=== PATIENT | male | born 1960 | race Two or more races ===

== ENCOUNTER 2016-09-21 12:21 | Inpatient (IN) | payer OTHER ==
[2016-09-21 13:35] VITALS: BMI 39.6
--- NOTE | 2016-09-21 14:31 | HP ---
COWS - Scale Resting Pulse: 1= AR 81-100 Sweatin= Chills/Flushing Restless Observation: 3= Extraneous Movement Pupil Size: 2= Moderately Dilated Bone or Joint Aches: 4=Acute Joint/Muscle Pain Runny Nose/ Eye Tearin= None GI Upset > 30mins: 2= Nausea/Diarrhea Tremor Observation: 2= Slight Tremor Visible Yawning Observation: 2= >3x During Session Anxiety or Irritability: 2=Irritable/Anxious Goose Flesh Skin: 0=Smooth Skin COWS Score: 19 CIWA Score - CIWA Score Nausea/Vomitin-Int. Nausea w/Dry Heave Muscle Tremors: 4-Moderate,w/Arms Extend Anxiety: 4-Mod. Anxious/Guarded Agitation: 3 Paroxysmal Sweats: 1-Minimal Palms Moist Orientation: 0-Oriented Tacttile Disturbances: 3-Moderate Itch/Numb/Burn Auditory Disturbances: 0-None Visual Disturbances: 0-None Headache: 1-Very Mild CIWA-Ar Total Score: 20 Admission ROS S - HPI Chief Complaint: DETOX FOR PERCOCETS AND ALCOHOL DEPENDENCE Allergies/Adverse Reactions: Allergies Allergy/AdvReac Type Severity Reaction Status Date / Time No Known Allergies Allergy Verified 09/21/16 14:55 History of Present Illness: 56 Y/O H/M WITH A HX OF PERCOCETS AND ALCOHOL DEPENDENCE SEEKING DETOX [place] Exam Limitations: No Limitations - Ebola screening Have you traveled outside of the country in the last 21 days: No Have you had contact with anyone from an Ebola affected area: No Have you been sick,other than usual withdrawal symptoms: No Do you have a fever: No - Review of Systems Constitutional: Chills, Loss of Appetite, Night Sweats, Changes in sleep EENT: reports: Blurred Vision (WEARS GLASSES), Tearing, Dental Problems (WEARS UPPER DENTURS) Respiratory: reports: Shortness of Breath (HX ASTHMA), Wheezing Cardiac: reports: Lightheadedness GI: reports: Constipated, Nausea, Poor Appetite, Poor Fluid Intake : reports: No Symptoms Reported Musculoskeletal: reports: Back Pain (HX SPINAL STENOSIS), Joint Pain (BOTH KNEE REPPLACEMENT), Muscle Pain Integumentary: reports: Dryness Neuro: reports: Headache, Tremors, Unsteady Gait, Dizziness Endocrine: reports: No Symptoms Reported Hematology: reports: No Symptoms Reported Psychiatric: reports: Orientated x3, Anxious, Depressed Other Systems: Reviewed and Negative Patient History - Patient Medical History Hx Anemia: No Hx Asthma: Yes (albuterol) Hx Chronic Obstructive Pulmonary Disease (COPD): No Hx Cancer: No Hx Cardiac Disorders: No Hx Congestive Heart Failure: No Hx Hypertension: Yes (ON LISINOPRIL AND CARVEDILOL) Hx Hypercholesterolemia: Yes (ON MED) Hx Pacemaker: No HX Cerebrovascular Accident: No Hx Seizures: No Hx Dementia: No Hx Diabetes: Yes (Type I-LANTUS 30 UNITS HS AND NOVOLOG 20 UNITS TIDAC) Hx Gastrointestinal Disorders: No Hx Liver Disease: No Hx Genitourinary Disorders: No Hx Sexually Transmitted Disorders: No Hx Renal Disease (ESRD): No Hx Thyroid Disease: No Hx Human Immunodeficiency Virus (HIV): No (NEGATIVE HX) Hx Hepatitis C: No Hx Depression: Yes (AND ANXIETY) Hx Suicide Attempt: No (DENIES) Hx Bipolar Disorder: No Hx Schizophrenia: No - Patient Surgical History Past Surgical History: Yes Hx Neurologic Surgery: No Hx Cataract Extraction: No Hx Cardiac Surgery: No Hx Lung Surgery: No Hx Breast Surgery: No Hx Breast Biopsy: No Hx Abdominal Surgery: No Hx Appendectomy: No Hx Cholecystectomy: No Hx Genitourinary Surgery: No Hx Section: No Hx Orthopedic Surgery: Yes (s/p bilat knee replacement in 2010) Anesthesia Reaction: No - PPD History Previous Implant?: Yes Documented Results: Negative w/o proof Date: 07/07/14 Results: 0 mm PPD to be Administered?: Yes - Reproductive History Patient is a Female of Child Bearing Age (11 -55 yrs old): No (MALE) - Smoking Cessation Smoking history: Never smoked Have you smoked in the past 12 months: No Hx Chewing Tobacco Use: No Initiated information on smoking cessation: No - Substance & Tx. History Hx Alcohol Use: Yes (BARCADI/BEER) Hx Substance Use: Yes (PERCOCETS) Substance Use Type: Alcohol, Opiates Hx Substance Use Treatment: Yes ([facility]) - Substances Abused Alcohol Route: Oral Frequency: Daily Amount used: FIFTH Age of first use: 16 Date of Last Use: 09/19/16 PERCOCETS Route: Oral Frequency: Daily Amount used: 60 -70 MG Age of first use: 55 Date of Last Use: 09/21/16 Family Disease History - Family Disease History Family Disease History: Diabetes: Father (STOMACH CANCER...), Brother ( STOMACH CANCER..), Other: Father Admission Physical Exam [facility] - Vital Signs Vital Signs: Vital Signs - 24 hr 09/21/16 13:14 Temperature 97.2 F L Pulse Rate 97 H Respiratory 20 Rate Blood Pressure 143/71 - Physical General Appearance: Yes: Moderate Distress, Irritable, Anxious HEENTM: Yes: EOMI, Normocephalic, SANTI, Pharynx Normal Respiratory: Yes: Chest Non-Tender, Lungs Clear, Normal Breath Sounds, No Respiratory Distress Neck: Yes: Supple, Trachea in good position Breast: Yes: Breast Exam Deferred Cardiology: Yes: Regular Rhythm, Regular Rate, S1, S2 Abdominal: Yes: Normal Bowel Sounds, Non Tender, Soft, Protuberent Genitourinary: Yes: Other (N/C) Back: Yes: Within Normal Limits Musculoskeletal: Yes: full range of Motion, Gait Steady Extremities: Yes: Normal Range of Motion, Non-Tender 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, Fully Oriented, Alert Integumentary: Yes: Dry, Warm, Track Abrams - Diagnostic (1) BPH (benign prostatic hyperplasia) Current Visit: Yes Status: Chronic Qualifiers: Prostatic enlargement morphology: unspecified morphology (2) Essential hypertension Current Visit: Yes Status: Chronic (3) Hypercholesterolemia Current Visit: Yes Status: Chronic (4) Obesity Current Visit: Yes Status: Chronic Qualifiers: Obesity type: unspecified obesity type (5) Peripheral neuropathy Current Visit: Yes Status: Chronic (6) Type 2 diabetes mellitus Current Visit: Yes Status: Chronic (7) Opioid dependence with withdrawal Current Visit: Yes Status: Acute (8) Asthma Current Visit: Yes Status: Chronic Qualifiers: Asthma severity: mild intermittent Asthma complication type: uncomplicated Qualified Code(s): J45.20 - Mild intermittent asthma, uncomplicated (9) Alcohol dependence with uncomplicated withdrawal Current Visit: Yes Status: Acute Cleared for Admission [facility] - Detox or Rehab [facility] Level of Care: Medically Managed Detox Regimen/Protocol: Methadone/Librium [facility] Breath Alcohol Content Breath Alcohol Content: 0 Urine Drug Screen - Results Drug Screen Negative: No Urine Drug Screen Results: TCA-Tricyclic Antidepress, OXY-Oxycodone
[2016-09-21] MEDS ORDERED: hydrOXYzine PAMOATE 25 MG CAPSULE (FP) PO PRN (15:45)
[2016-09-21] MEDS ORDERED: MAGNESIUM CITRATE 300 ML BOTTLE PO PRN (15:45)
[2016-09-21] MEDS ORDERED: MENTHOL/PHENOL 1 EACH UD MM PRN (15:45)
[2016-09-21] MEDS ORDERED: P-EPHED 60MG/TRIPROLIDI 2.5MG TABLET PO PRN (15:45)
[2016-09-21] MEDS ORDERED: MAGNESIUM HYDROX 2400MG/30ML ORAL SUSPENSION 30 ML CUP PO PRN (15:45)
[2016-09-21] MEDS ORDERED: chlordiazePOXIDE HCL 25 MG CAPSULE PO PRN (15:45)
[2016-09-21] MEDS ORDERED: MAG HYDROX/AL HYDROX/SIMETH 30 ML UNIT-DOSE CUP PO PRN (15:45)
[2016-09-21] MEDS ORDERED: guaiFENesin/D-METHORPHAN HB 10 ML UNIT-DOSE CUPS PO PRN (15:45)
[2016-09-21] MEDS ORDERED: LOPERAMIDE HCL 2 MG CAPSULE PO PRN (15:45)
[2016-09-21] MEDS: chlordiazePOXIDE HCL 25 MG CAPSULE PO SCH ×2 (17:27→22:18)
[2016-09-21] MEDS ORDERED: METHADONE HCL 10 MG TABLET (FOR DETOX USE ONLY) PO ONE ×2 (17:30→23:00)
[2016-09-21] MEDS: INSULIN SLIDING SCALE (NOVOLOG) 1 VIAL SQ SCH ×2 (17:34→21:33)
[2016-09-21] MEDS ORDERED: diphenhydrAMINE HCL 50 MG CAPSULE PO PRN (22:00)
[2016-09-21] MEDS ORDERED: PATIENT'S OWN MEDICATION (NON-FORMULARY) (Insulin Glargine,Hum.Rec.Anlog 30 UNITS) SQ SCH (22:00)
[2016-09-21] MEDS ORDERED: PATIENT'S OWN MEDICATION (NON-FORMULARY) (Gabapentin [Neurontin] 600 MG) PO SCH (22:00)
[2016-09-21] MEDS ORDERED: FLUNISOLIDE IH SCH (22:00)
[2016-09-21] MEDS: THIAMINE HCL 100 MG TABLET (FP) PO SCH (22:18)
[2016-09-21] MEDS: GABAPENTIN 300 MG CAPSULE (FP) PO SCH (22:18)
[2016-09-21] MEDS: CARVEDILOL 25 MG TABLET (FP) PO SCH (22:19)
[2016-09-21] MEDS: ATORVASTATIN CA 20 MG TABLET (FP) PO SCH (22:19)
[2016-09-21] MEDS: INSULIN DETEMIR 100 UNITS/ML MDV SQ SCH (22:20)
[2016-09-21] MEDS ORDERED: ALBUTEROL SO4 6.7 GM HFA INHALER IH ONE (22:49)
[2016-09-21] MEDS: ALBUTEROL SO4 6.7 GM HFA INHALER IH PRN (22:50)
[2016-09-22] MEDS: GABAPENTIN 300 MG CAPSULE (FP) PO SCH (05:50)
[2016-09-22] MEDS: chlordiazePOXIDE HCL 25 MG CAPSULE PO SCH ×4 (05:50→22:27)
[2016-09-22] MEDS: INSULIN SLIDING SCALE (NOVOLOG) 1 VIAL SQ SCH ×4 (06:18→22:29)
[2016-09-22] MEDS: TAMSULOSIN HCL 0.4 MG CAP.ER.24H (FP) PO SCH (09:35)
[2016-09-22 09:59] LABS: MCH 27.8 pg (25.7-33.7); MCHC 33.3 g/dl (32.0-35.9); MEAN CELL VOLUME 83.4 fl (80-96); PLATELET COUNT 408 K/MM3 (134-434); WHITE BLOOD COUNT 8.5 K/mm3 (4.0-10.0)
[2016-09-22] MEDS ORDERED: NIFEdipine E.R 60 MG TABLET (UD) PO SCH (10:00)
[2016-09-22] MEDS ORDERED: PATIENT'S OWN MEDICATION (NON-FORMULARY) (Nifedipine [Nifedical Xl] 60 MG) PO SCH (10:00)
[2016-09-22] MEDS ORDERED: METHADONE HCL 10 MG TABLET (FOR DETOX USE ONLY) PO SCH (10:00)
[2016-09-22] MEDS: LISINOPRIL 10 MG TABLET (FP) PO SCH (10:09)
[2016-09-22] MEDS: PRENATAL VITAMINS W/ FOLIC ACID TABLET (FP) PO SCH (10:09)
[2016-09-22] MEDS: ASPIRIN 81 MG CHEWABLE TABLETS PO SCH (10:10)
[2016-09-22] MEDS: CARVEDILOL 25 MG TABLET (FP) PO SCH ×2 (10:10→22:27)
[2016-09-22 10:16] LABS: ALK PHOS 78 U/L (45-117); ANION GAP 8 (8-16); BILIRUBIN,TOTAL 0.3 mg/dL (0.2-1.0); CALCIUM 9.1 mg/dL (8.5-10.1); CO2 28 mmol/L (21-32); GLUCOSE,RANDOM 189 mg/dL (74-106); SGOT/AST 15 U/L (15-37); SGPT/ALT 24 U/L (12-78); TOT PROT 7.2 g/dl (6.4-8.2)
--- NOTE | 2016-09-22 10:32 | PN ---
S CIWA - CIWA Score Nausea/Vomitin-Mild Nausea/No Vomiting Muscle Tremors: 4-Moderate,w/Arms Extend Anxiety: 4-Mod. Anxious/Guarded Agitation: 3 Paroxysmal Sweats: 3 Orientation: 0-Oriented Tacttile Disturbances: 1-Very Mild Itch/Numbness Auditory Disturbances: 0-None Visual Disturbances: 0-None Headache: 0-None Present CIWA-Ar Total Score: 16 BHS COWS - Scale Resting Pulse: 1= [place] 81-100 Sweatin=Flushed/Facial Moisture Restless Observation: 1= Difficult to Sit Still Pupil Size: 0= Normal to Room Light Bone or Joint Aches: 2= Severe Diffuse Aches Runny Nose/ Eye Tearin= Runny Nose/Eyes GI Upset > 30mins: 2= Nausea/Diarrhea Tremor Observation of Outstretched Hands: 2= Slight Tremor Visible Yawning Observation: 1= 1-2x During Session Anxiety or Irritability: 2=Irritable/Anxious Goose Flesh Skin: 0=Smooth Skin COWS Score: 15 S Progress Note (SOAP) Subjective: sweating,interrupted sleep,restless,sweating,muscle aches/spasm Objective: 09/22/16 10:29 Last Vital Signs Temp Pulse Resp BP Pulse Ox 96.5 F L 85 18 150/81 09/22/16 10:00 09/22/16 10:00 09/22/16 10:00 09/22/16 10:00 Laboratory Tests 09/21/16 09/22/16 09/22/16 15:11 05:49 06:00 WBC 8.5 RBC 4.19 Hgb 11.6 L D Hct 35.0 L MCV 83.4 MCHC 33.3 RDW 14.0 Plt Count 408 D MPV 8.0 Sodium Potassium Chloride Carbon Dioxide Anion Gap BUN Creatinine Creat Clearance w eGFR POC Glucometer 189 136 Random Glucose Calcium Total Bilirubin AST ALT Alkaline Phosphatase Total Protein Albumin 09/22/16 06:00 WBC RBC Hgb Hct MCV MCHC RDW Plt Count MPV Sodium 138 Potassium 5.0 Chloride 102 Carbon Dioxide 28 Anion Gap 8 BUN 19 H D Creatinine 1.0 Creat Clearance w eGFR > 60 POC Glucometer Random Glucose 189 H D Calcium 9.1 Total Bilirubin 0.3 AST 15 D ALT 24 D Alkaline Phosphatase 78 Total Protein 7.2 Albumin 4.0 labs noted Assessment: 09/22/16 10:32 withdrawal sx. Plan: continue detox
[2016-09-22] MEDS: NIFEDIPINE PO SCH (10:39)
[2016-09-22] MEDS ORDERED: INSULIN (NOVOLOG) ASPART 100 UNITS/ML 10ML VIAL ONE ×2 (11:43→16:54)
[2016-09-22] MEDS: GABAPENTIN PO SCH ×2 (13:57→22:28)
--- NOTE | 2016-09-22 14:11 | CONSULT ---
[facility] Psychiatric Consult - Data Date of interview: 09/22/16 Admission source: [facility] Identifying data: Readmission to [facility] for this 56 y/o male seeking detox treatment on for alcohol and opiate dependence.Patient is ,a father of two,domiciled,disabled and supported on [facility] benefits. Substance Abuse History: - Smoking Cessation. Smoking history: Never smoked. Have you smoked in the past 12 months: No. Hx Chewing Tobacco Use: No. - Substance & Tx. History. Hx Alcohol Use: Yes (BARCADI/BEER). Hx Substance Use : Yes (PERCOCETS). Substance Use Type: Alcohol, Opiates. Hx Substance Use Treatment: Yes ([facility]). - Substances Abused. Alcohol. Route: Oral. Frequency: Daily. Amount used: FIFTH. Age of first use: 16. Date of Last Use : 09/19/16. PERCOCETS. Route: Oral. Frequency: Daily. Amount used: 60 - 70 MG. Age of first use: 55. Date of Last Use: 09/21/16. Confirmed by patient in my interview. Medical History: Remarkable for a history of bronchial asthma,hypertension,low back pain,bilateral knee replacement,benign prostatic hyperplasia,diabetes mellitus-type I,spinal stenosis and obesity. Psychiatric History: Patient denies. Physical/Sexual Abuse/Trauma History: Patient denies. Additional Comment: Urine Drug Screen Results: TCA-Tricyclic Antidepressant, OXY -Oxycodone.Noted. Mental Status Exam - Mental Status Exam Alert and Oriented to: Time, Place, Person Cognitive Function: Good Patient Appearance: Well Groomed (obese) Mood: Hopeful, Euthymic Affect: Appropriate, Normal Range Patient Behavior: Fatigued, Appropriate, Cooperative Speech Pattern: Clear, Appropriate Voice Loudness: Normal Thought Process: Goal Oriented Thought Disorder: Not Present Hallucinations: Denies Suicidal Ideation: Denies Homicidal Ideation: Denies Insight/Judgement: Fair Sleep: Fair Appetite: Good Muscle strength/Tone: Normal Gait/Station: Other (mild limp) Psychiatric Findings - Problem List ([place] 1, 2,3) (1) Alcohol dependence with uncomplicated withdrawal Current Visit: Yes Status: Acute (2) Opioid dependence with withdrawal Current Visit: Yes Status: Acute (3) Essential hypertension Current Visit: Yes Status: Chronic (4) BPH (benign prostatic hyperplasia) Current Visit: Yes Status: Chronic Qualifiers: Prostatic enlargement morphology: unspecified morphology (5) Obesity Current Visit: Yes Status: Chronic Qualifiers: Obesity type: unspecified obesity type (6) Hypercholesterolemia Current Visit: Yes Status: Chronic (7) Type 2 diabetes mellitus Current Visit: Yes Status: Chronic (8) Peripheral neuropathy Current Visit: Yes Status: Chronic - Initial Treatment Plan Initial Treatment Plan: Psychoeducation.Detoxification.Observation.
[2016-09-22 17:24] LABS: URINE APPEARANCE CLEAR; URINE BILIRUBIN NEGATIVE (NEGATIVE); URINE BLOOD NEGATIVE (NEGATIVE); URINE COLOR YELLOW; URINE GLUCOSE (UA) 3+ (NEGATIVE); URINE KETONE NEGATIVE (NEGATIVE); URINE LEUK ESTERASE NEGATIVE (NEGATIVE); URINE NITRITE NEGATIVE (NEGATIVE); URINE UROBILINOGEN NEGATIVE E.U./dl (0.2-1.0)
[2016-09-22 17:59] LABS: URINE PROTEIN 1+ (NEGATIVE)
[2016-09-22 18:31] LABS: URINE MUCUS RARE; URINE RBC <1 /hpf (0-3); URINE WBC <1 /hpf (3-5)
[2016-09-22] MEDS: ATORVASTATIN CA 20 MG TABLET (FP) PO SCH (22:27)
[2016-09-22] MEDS: THIAMINE HCL 100 MG TABLET (FP) PO SCH (22:27)
[2016-09-22] MEDS: INSULIN DETEMIR 100 UNITS/ML MDV SQ SCH (22:28)
[2016-09-22] MEDS: FLUNISOLIDE IH SCH (22:28)
--- NOTE | 2016-09-22 23:36 | EKG ---
Test Reason : Blood Pressure : / mmHG Vent. Rate : 093 BPM Atrial Rate : 093 BPM P-R Int : 140 ms QRS Dur : 076 ms QT Int : 340 ms P-R-T Axes : 060 048 052 degrees QTc Int : 422 ms NORMAL SINUS RHYTHM NONSPECIFIC T WAVE ABNORMALITY ABNORMAL ECG NO PREVIOUS ECGS AVAILABLE Confirmed by TARA MCPHERSON MD ([id number]) on 09/22/2016 11:35:55 PM Referred By: Confirmed By:TARA MCPHERSON MD
[2016-09-23] MEDS: chlordiazePOXIDE HCL 25 MG CAPSULE PO SCH ×2 (05:39→10:17)
[2016-09-23] MEDS: GABAPENTIN PO SCH ×3 (05:39→22:21)
[2016-09-23] MEDS: INSULIN SLIDING SCALE (NOVOLOG) 1 VIAL SQ SCH ×4 (06:09→21:30)
[2016-09-23] MEDS: ALBUTEROL SO4 6.7 GM HFA INHALER IH PRN ×2 (10:16→22:25)
[2016-09-23] MEDS: NIFEDIPINE PO SCH (10:16)
[2016-09-23] MEDS: CARVEDILOL 25 MG TABLET (FP) PO SCH ×2 (10:16→22:21)
[2016-09-23] MEDS: PRENATAL VITAMINS W/ FOLIC ACID TABLET (FP) PO SCH (10:16)
[2016-09-23] MEDS: TAMSULOSIN HCL 0.4 MG CAP.ER.24H (FP) PO SCH (10:16)
[2016-09-23] MEDS: LISINOPRIL 10 MG TABLET (FP) PO SCH (10:16)
[2016-09-23] MEDS: ASPIRIN 81 MG CHEWABLE TABLETS PO SCH (10:16)
[2016-09-23] MEDS: METHADONE HCL 5 MG TABLET (FOR DETOX USE ONLY) PO SCH (10:19)
[2016-09-23] MEDS ORDERED: INSULIN (NOVOLOG) ASPART 100 UNITS/ML 10ML VIAL ONE ×3 (11:10→21:19)
[2016-09-23] MEDS: ACETAMINOPHEN 325 MG TABLET (FP) PO PRN (11:11)
--- NOTE | 2016-09-23 17:14 | PN ---
[facility] CIWA - CIWA Score Nausea/Vomitin-No Nausea/No Vomiting Muscle Tremors: 4-Moderate,w/Arms Extend Anxiety: 4-Mod. Anxious/Guarded Agitation: 3 Paroxysmal Sweats: 3 Orientation: 0-Oriented Tacttile Disturbances: 0-None Auditory Disturbances: 0-None Visual Disturbances: 0-None Headache: 0-None Present CIWA-Ar Total Score: 14 S Progress Note (SOAP) Subjective: anxiety,tremors,sweating,interrupted sleep,restless Objective: 09/23/16 17:13 Vital Signs - 8 hr 09/23/16 09/23/16 09:45 15:03 Temperature 96.3 F L 98.1 F Pulse Rate 87 79 Respiratory 18 20 Rate Blood Pressure 156/89 140/89 Laboratory Last Values WBC 8.5 K/mm3 (4.0-10.0) 09/22/16 06:00 RBC 4.19 M/mm3 (4.00-5.60) 09/22/16 06:00 Hgb 11.6 GM/dL (11.7-16.9) L D 09/22/16 06:00 Hct 35.0 % (35.4-49) L 09/22/16 06:00 MCV 83.4 fl (80-96) 09/22/16 06:00 MCHC 33.3 g/dl (32.0-35.9) 09/22/16 06:00 RDW 14.0 % (11.9-15.9) 09/22/16 06:00 Plt Count 408 K/MM3 (134-434) D 09/22/16 06:00 MPV 8.0 fl (7.5-11.1) 09/22/16 06:00 Sodium 138 mmol/L (136-145) 09/22/16 06:00 Potassium 5.0 mmol/L (3.5-5.1) 09/22/16 06:00 Chloride 102 mmol/L (98-107) 09/22/16 06:00 Carbon Dioxide 28 mmol/L (21-32) 09/22/16 06:00 Anion Gap 8 (8-16) 09/22/16 06:00 BUN 19 mg/dL (7-18) H D 09/22/16 06:00 Creatinine 1.0 mg/dL (0.7-1.3) 09/22/16 06:00 Creat Clearance w eGFR > 60 (>60) 09/22/16 06:00 POC Glucometer 240 UNITS (()) 09/23/16 16:13 Random Glucose 189 mg/dL (74-106) H D 09/22/16 06:00 Calcium 9.1 mg/dL (8.5-10.1) 09/22/16 06:00 Total Bilirubin 0.3 mg/dL (0.2-1.0) 09/22/16 06:00 AST 15 U/L (15-37) D 09/22/16 06:00 ALT 24 U/L (12-78) D 09/22/16 06:00 Alkaline Phosphatase 78 U/L (45-117) 09/22/16 06:00 Total Protein 7.2 g/dl (6.4-8.2) 09/22/16 06:00 Albumin 4.0 g/dl (3.4-5.0) 09/22/16 06:00 Urine Color Yellow 09/22/16 11:55 Urine Appearance Clear 09/22/16 11:55 Urine pH 6.0 (5.0-8.0) 09/22/16 11:55 Ur Specific [place] 1.016 (1.001-1.035) 09/22/16 11:55 Urine Protein 1+ (NEGATIVE) H 09/22/16 11:55 Urine Glucose (UA) 3+ (NEGATIVE) H 09/22/16 11:55 Urine Ketones Negative (NEGATIVE) 09/22/16 11:55 Urine Blood Negative (NEGATIVE) 09/22/16 11:55 Urine Nitrite Negative (NEGATIVE) 09/22/16 11:55 Urine Bilirubin Negative (NEGATIVE) 09/22/16 11:55 Urine Urobilinogen Negative E.U./dl (0.2-1.0) 09/22/16 11:55 Ur Leukocyte Esterase Negative (NEGATIVE) 09/22/16 11:55 Urine RBC <1 /hpf (0-3) 09/22/16 11:55 Urine WBC <1 /hpf (3-5) 09/22/16 11:55 Ur Epithelial Cells Rare /hpf (FEW) 09/22/16 11:55 Urine Mucus Rare 09/22/16 11:55 RPR Titer Nonreactive (NONREACTIVE) 09/22/16 06:00 labs noted Assessment: 09/23/16 17:14 withdrawal sx. Plan: continue detox
[2016-09-23] MEDS: chlordiazePOXIDE 5 MG CAPSULE PO SCH ×2 (17:21→22:21)
[2016-09-23] MEDS: THIAMINE HCL 100 MG TABLET (FP) PO SCH (22:21)
[2016-09-23] MEDS: ATORVASTATIN CA 20 MG TABLET (FP) PO SCH (22:22)
[2016-09-23] MEDS: ZOLPIDEM TARTRATE 5 MG TABLET PO PRN (22:22)
[2016-09-23] MEDS: FLUNISOLIDE IH SCH (22:24)
[2016-09-23] MEDS: INSULIN DETEMIR 100 UNITS/ML MDV SQ SCH (22:24)
[2016-09-24] MEDS: GABAPENTIN PO SCH ×3 (05:42→22:15)
[2016-09-24] MEDS: chlordiazePOXIDE 5 MG CAPSULE PO SCH ×2 (05:42→10:15)
[2016-09-24] MEDS: INSULIN SLIDING SCALE (NOVOLOG) 1 VIAL SQ SCH ×4 (06:06→21:46)
[2016-09-24] MEDS ORDERED: INSULIN (NOVOLOG) ASPART 100 UNITS/ML 10ML VIAL ONE ×3 (06:06→16:32)
[2016-09-24] MEDS: TAMSULOSIN HCL 0.4 MG CAP.ER.24H (FP) PO SCH (09:45)
[2016-09-24] MEDS: METHADONE HCL 5 MG TABLET (FOR DETOX USE ONLY) PO SCH (10:14)
[2016-09-24] MEDS: PRENATAL VITAMINS W/ FOLIC ACID TABLET (FP) PO SCH (10:14)
[2016-09-24] MEDS: LISINOPRIL 10 MG TABLET (FP) PO SCH (10:14)
[2016-09-24] MEDS: CARVEDILOL 25 MG TABLET (FP) PO SCH ×2 (10:14→22:15)
[2016-09-24] MEDS: NIFEDIPINE PO SCH (10:14)
[2016-09-24] MEDS: ASPIRIN 81 MG CHEWABLE TABLETS PO SCH (10:14)
[2016-09-24] MEDS: ALBUTEROL SO4 6.7 GM HFA INHALER IH PRN ×2 (10:15→22:16)
[2016-09-24] MEDS: ACETAMINOPHEN 325 MG TABLET (FP) PO PRN (10:56)
--- NOTE | 2016-09-24 11:14 | PN ---
BHS Progress Note (SOAP) Subjective: SWEATING,INTERRUPTED SLEEP,RESTLESS Objective: 09/24/16 11:12 Vital Signs - 8 hr 09/24/16 09/24/16 09/24/16 03:27 06:08 09:21 Temperature 96.1 F L 96.8 F L Pulse Rate 79 87 Respiratory 18 18 18 Rate Blood Pressure 137/83 137/79 Laboratory Tests 09/21/16 09/21/16 09/22/16 15:11 21:19 05:49 WBC RBC Hgb Hct MCV MCHC RDW Plt Count MPV Sodium Potassium Chloride Carbon Dioxide Anion Gap BUN Creatinine Creat Clearance w eGFR POC Glucometer 189 162 136 Random Glucose Calcium Total Bilirubin AST ALT Alkaline Phosphatase Total Protein Albumin Urine Color Urine Appearance Urine pH Ur Specific Home Urine Protein Urine Glucose (UA) Urine Ketones Urine Blood Urine Nitrite Urine Bilirubin Urine Urobilinogen Ur Leukocyte Esterase Urine RBC Urine WBC Ur Epithelial Cells Urine Mucus RPR Titer 09/22/16 09/22/16 09/22/16 06:00 06:00 06:00 WBC 8.5 RBC 4.19 Hgb 11.6 L D Hct 35.0 L MCV 83.4 MCHC 33.3 RDW 14.0 Plt Count 408 D MPV 8.0 Sodium 138 Potassium 5.0 Chloride 102 Carbon Dioxide 28 Anion Gap 8 BUN 19 H D Creatinine 1.0 Creat Clearance w eGFR > 60 POC Glucometer Random Glucose 189 H D Calcium 9.1 Total Bilirubin 0.3 AST 15 D ALT 24 D Alkaline Phosphatase 78 Total Protein 7.2 Albumin 4.0 Urine Color Urine Appearance Urine pH Ur Specific Home Urine Protein Urine Glucose (UA) Urine Ketones Urine Blood Urine Nitrite Urine Bilirubin Urine Urobilinogen Ur Leukocyte Esterase Urine RBC Urine WBC Ur Epithelial Cells Urine Mucus RPR Titer Nonreactive 09/22/16 09/22/16 09/22/16 11:40 11:55 16:19 WBC RBC Hgb Hct MCV MCHC RDW Plt Count MPV Sodium Potassium Chloride Carbon Dioxide Anion Gap BUN Creatinine Creat Clearance w eGFR POC Glucometer 273 173 Random Glucose Calcium Total Bilirubin AST ALT Alkaline Phosphatase Total Protein Albumin Urine Color Yellow Urine Appearance Clear Urine pH 6.0 Ur Specific Home 1.016 Urine Protein 1+ H Urine Glucose (UA) 3+ H Urine Ketones Negative Urine Blood Negative Urine Nitrite Negative Urine Bilirubin Negative Urine Urobilinogen Negative Ur Leukocyte Esterase Negative Urine RBC <1 Urine WBC <1 Ur Epithelial Cells Rare Urine Mucus Rare RPR Titer 09/22/16 09/23/16 09/23/16 20:47 05:38 11:05 WBC RBC Hgb Hct MCV MCHC RDW Plt Count MPV Sodium Potassium Chloride Carbon Dioxide Anion Gap BUN Creatinine Creat Clearance w eGFR POC Glucometer 167 178 239 Random Glucose Calcium Total Bilirubin AST ALT Alkaline Phosphatase Total Protein Albumin Urine Color Urine Appearance Urine pH Ur Specific Home Urine Protein Urine Glucose (UA) Urine Ketones Urine Blood Urine Nitrite Urine Bilirubin Urine Urobilinogen Ur Leukocyte Esterase Urine RBC Urine WBC Ur Epithelial Cells Urine Mucus RPR Titer 09/23/16 09/23/16 09/24/16 16:13 21:08 05:41 WBC RBC Hgb Hct MCV MCHC RDW Plt Count MPV Sodium Potassium Chloride Carbon Dioxide Anion Gap BUN Creatinine Creat Clearance w eGFR POC Glucometer 240 210 198 Random Glucose Calcium Total Bilirubin AST ALT Alkaline Phosphatase Total Protein Albumin Urine Color Urine Appearance Urine pH Ur Specific Home Urine Protein Urine Glucose (UA) Urine Ketones Urine Blood Urine Nitrite Urine Bilirubin Urine Urobilinogen Ur Leukocyte Esterase Urine RBC Urine WBC Ur Epithelial Cells Urine Mucus RPR Titer LABS NOTED Assessment: 09/24/16 11:13 WITHDRAWAL SX. Plan: CONTINUE DETOX
[2016-09-24] MEDS: chlordiazePOXIDE HCL 10 MG CAPSULE PO SCH ×2 (17:42→22:14)
--- NOTE | 2016-09-24 21:31 | PN ---
S Progress Note (SOAP) Subjective: finger stick 272 Objective: 09/24/16 21:30 alert oriented x 3 Assessment: 09/24/16 21:31 diabetes ii Plan: hold insulin coverage given levemir 30 units continue detox
[2016-09-24] MEDS: INSULIN DETEMIR 100 UNITS/ML MDV SQ SCH (21:45)
[2016-09-24] MEDS: THIAMINE HCL 100 MG TABLET (FP) PO SCH (22:14)
[2016-09-24] MEDS: ZOLPIDEM TARTRATE 5 MG TABLET PO PRN (22:15)
[2016-09-24] MEDS: ATORVASTATIN CA 20 MG TABLET (FP) PO SCH (22:15)
[2016-09-24] MEDS: FLUNISOLIDE IH SCH (22:16)
[2016-09-25] MEDS: GABAPENTIN PO SCH ×3 (05:43→22:20)
[2016-09-25] MEDS: chlordiazePOXIDE HCL 10 MG CAPSULE PO SCH ×2 (05:43→10:13)
[2016-09-25] MEDS ORDERED: INSULIN (NOVOLOG) ASPART 100 UNITS/ML 10ML VIAL ONE ×4 (06:41→20:56)
[2016-09-25] MEDS: INSULIN SLIDING SCALE (NOVOLOG) 1 VIAL SQ SCH ×5 (07:09→21:30)
[2016-09-25] MEDS: TAMSULOSIN HCL 0.4 MG CAP.ER.24H (FP) PO SCH (08:53)
--- NOTE | 2016-09-25 09:12 | PN ---
BHS Progress Note (SOAP) Subjective: NAUSEA, SWEATS, ITNERRUPTED SLEEP, ANXIETY, TREMOR, CONCERNED ABOUT ELEVATED BLOOD SUGAR Objective: 09/25/16 09:09 Vital Signs - 8 hr 09/25/16 09/25/16 03:34 06:21 Temperature 97.5 F L Pulse Rate 77 Respiratory 18 18 Rate Blood Pressure 132/77 Laboratory Tests 09/21/16 09/21/16 09/22/16 15:11 21:19 05:49 WBC RBC Hgb Hct MCV MCHC RDW Plt Count MPV Sodium Potassium Chloride Carbon Dioxide Anion Gap BUN Creatinine Creat Clearance w eGFR POC Glucometer 189 162 136 Random Glucose Calcium Total Bilirubin AST ALT Alkaline Phosphatase Total Protein Albumin Urine Color Urine Appearance Urine pH Ur Specific [place] Urine Protein Urine Glucose (UA) Urine Ketones Urine Blood Urine Nitrite Urine Bilirubin Urine Urobilinogen Ur Leukocyte Esterase Urine RBC Urine WBC Ur Epithelial Cells Urine Mucus RPR Titer 09/22/16 09/22/16 09/22/16 06:00 06:00 06:00 WBC 8.5 RBC 4.19 Hgb 11.6 L D Hct 35.0 L MCV 83.4 MCHC 33.3 RDW 14.0 Plt Count 408 D MPV 8.0 Sodium 138 Potassium 5.0 Chloride 102 Carbon Dioxide 28 Anion Gap 8 BUN 19 H D Creatinine 1.0 Creat Clearance w eGFR > 60 POC Glucometer Random Glucose 189 H D Calcium 9.1 Total Bilirubin 0.3 AST 15 D ALT 24 D Alkaline Phosphatase 78 Total Protein 7.2 Albumin 4.0 Urine Color Urine Appearance Urine pH Ur Specific [place] Urine Protein Urine Glucose (UA) Urine Ketones Urine Blood Urine Nitrite Urine Bilirubin Urine Urobilinogen Ur Leukocyte Esterase Urine RBC Urine WBC Ur Epithelial Cells Urine Mucus RPR Titer Nonreactive 09/22/16 09/22/16 09/22/16 11:40 11:55 16:19 WBC RBC Hgb Hct MCV MCHC RDW Plt Count MPV Sodium Potassium Chloride Carbon Dioxide Anion Gap BUN Creatinine Creat Clearance w eGFR POC Glucometer 273 173 Random Glucose Calcium Total Bilirubin AST ALT Alkaline Phosphatase Total Protein Albumin Urine Color Yellow Urine Appearance Clear Urine pH 6.0 Ur Specific [place] 1.016 Urine Protein 1+ H Urine Glucose (UA) 3+ H Urine Ketones Negative Urine Blood Negative Urine Nitrite Negative Urine Bilirubin Negative Urine Urobilinogen Negative Ur Leukocyte Esterase Negative Urine RBC <1 Urine WBC <1 Ur Epithelial Cells Rare Urine Mucus Rare RPR Titer 09/22/16 09/23/16 09/23/16 20:47 05:38 11:05 WBC RBC Hgb Hct MCV MCHC RDW Plt Count MPV Sodium Potassium Chloride Carbon Dioxide Anion Gap BUN Creatinine Creat Clearance w eGFR POC Glucometer 167 178 239 Random Glucose Calcium Total Bilirubin AST ALT Alkaline Phosphatase Total Protein Albumin Urine Color Urine Appearance Urine pH Ur Specific [place] Urine Protein Urine Glucose (UA) Urine Ketones Urine Blood Urine Nitrite Urine Bilirubin Urine Urobilinogen Ur Leukocyte Esterase Urine RBC Urine WBC Ur Epithelial Cells Urine Mucus RPR Titer 09/23/16 09/23/16 09/24/16 16:13 21:08 05:41 WBC RBC Hgb Hct MCV MCHC RDW Plt Count MPV Sodium Potassium Chloride Carbon Dioxide Anion Gap BUN Creatinine Creat Clearance w eGFR POC Glucometer 240 210 198 Random Glucose Calcium Total Bilirubin AST ALT Alkaline Phosphatase Total Protein Albumin Urine Color Urine Appearance Urine pH Ur Specific [place] Urine Protein Urine Glucose (UA) Urine Ketones Urine Blood Urine Nitrite Urine Bilirubin Urine Urobilinogen Ur Leukocyte Esterase Urine RBC Urine WBC Ur Epithelial Cells Urine Mucus RPR Titer 09/24/16 09/24/16 09/24/16 10:52 16:28 20:45 WBC RBC Hgb Hct MCV MCHC RDW Plt Count MPV Sodium Potassium Chloride Carbon Dioxide Anion Gap BUN Creatinine Creat Clearance w eGFR POC Glucometer 347 264 272 Random Glucose Calcium Total Bilirubin AST ALT Alkaline Phosphatase Total Protein Albumin Urine Color Urine Appearance Urine pH Ur Specific [place] Urine Protein Urine Glucose (UA) Urine Ketones Urine Blood Urine Nitrite Urine Bilirubin Urine Urobilinogen Ur Leukocyte Esterase Urine RBC Urine WBC Ur Epithelial Cells Urine Mucus RPR Titer 09/25/16 05:42 WBC RBC Hgb Hct MCV MCHC RDW Plt Count MPV Sodium Potassium Chloride Carbon Dioxide Anion Gap BUN Creatinine Creat Clearance w eGFR POC Glucometer 242 Random Glucose Calcium Total Bilirubin AST ALT Alkaline Phosphatase Total Protein Albumin Urine Color Urine Appearance Urine pH Ur Specific [place] Urine Protein Urine Glucose (UA) Urine Ketones Urine Blood Urine Nitrite Urine Bilirubin Urine Urobilinogen Ur Leukocyte Esterase Urine RBC Urine WBC Ur Epithelial Cells Urine Mucus RPR Titer ANEMIA, DEHYDRATION, HYPERGLYCEMIA, ELEVATED lftS Assessment: 09/25/16 09:10 WITHDRAWAL SX, DIABETES POORLY CONTROLLED , DEHYRATION, HEPATITIS, OBESITY Plan: CONT DETOX, ENCOURAGE FLUIDS, DIETARY ADVICE GIVEN, SLIDING SCALE
[2016-09-25] MEDS ORDERED: METHADONE HCL 10 MG TABLET (FOR DETOX USE ONLY) PO SCH (10:00)
[2016-09-25] MEDS: LISINOPRIL 10 MG TABLET (FP) PO SCH (10:13)
[2016-09-25] MEDS: ASPIRIN 81 MG CHEWABLE TABLETS PO SCH (10:13)
[2016-09-25] MEDS: ALBUTEROL SO4 6.7 GM HFA INHALER IH PRN ×2 (10:13→22:21)
[2016-09-25] MEDS: PRENATAL VITAMINS W/ FOLIC ACID TABLET (FP) PO SCH (10:13)
[2016-09-25] MEDS: CARVEDILOL 25 MG TABLET (FP) PO SCH ×2 (10:13→22:20)
[2016-09-25] MEDS: NIFEDIPINE PO SCH (10:13)
[2016-09-25] MEDS: INSULIN DETEMIR 100 UNITS/ML MDV SQ SCH (21:30)
[2016-09-25] MEDS: ZOLPIDEM TARTRATE 5 MG TABLET PO PRN (22:00)
[2016-09-25] MEDS: ATORVASTATIN CA 20 MG TABLET (FP) PO SCH (22:20)
[2016-09-25] MEDS: THIAMINE HCL 100 MG TABLET (FP) PO SCH (22:20)
[2016-09-25] MEDS: FLUNISOLIDE IH SCH (22:22)
[2016-09-26] MEDS: GABAPENTIN PO SCH (05:45)
[2016-09-26] MEDS ORDERED: METHADONE HCL 5 MG TABLET (FOR DETOX USE ONLY) PO SCH (06:00)
[2016-09-26 06:33] VITALS: BP 129/82; PULSE 76; TEMP 96.4
[2016-09-26] MEDS ORDERED: INSULIN (NOVOLOG) ASPART 100 UNITS/ML 10ML VIAL ONE (07:11)
[2016-09-26] MEDS: INSULIN SLIDING SCALE (NOVOLOG) 1 VIAL SQ SCH (07:17)
--- NOTE | 2016-09-26 08:34 | PN ---
[facility] Progress Note (SOAP) Subjective: no complaints Objective: 09/26/16 08:32 Vital Signs - 8 hr 09/26/16 09/26/16 03:30 06:33 Temperature 96.4 F L Pulse Rate 76 Respiratory 18 18 Rate Blood Pressure 129/82 Laboratory Tests 09/21/16 09/21/16 09/22/16 15:11 21:19 05:49 WBC RBC Hgb Hct MCV MCHC RDW Plt Count MPV Sodium Potassium Chloride Carbon Dioxide Anion Gap BUN Creatinine Creat Clearance w eGFR POC Glucometer 189 162 136 Random Glucose Calcium Total Bilirubin AST ALT Alkaline Phosphatase Total Protein Albumin Urine Color Urine Appearance Urine pH Ur Specific [place] Urine Protein Urine Glucose (UA) Urine Ketones Urine Blood Urine Nitrite Urine Bilirubin Urine Urobilinogen Ur Leukocyte Esterase Urine RBC Urine WBC Ur Epithelial Cells Urine Mucus RPR Titer 09/22/16 09/22/16 09/22/16 06:00 06:00 06:00 WBC 8.5 RBC 4.19 Hgb 11.6 L D Hct 35.0 L MCV 83.4 MCHC 33.3 RDW 14.0 Plt Count 408 D MPV 8.0 Sodium 138 Potassium 5.0 Chloride 102 Carbon Dioxide 28 Anion Gap 8 BUN 19 H D Creatinine 1.0 Creat Clearance w eGFR > 60 POC Glucometer Random Glucose 189 H D Calcium 9.1 Total Bilirubin 0.3 AST 15 D ALT 24 D Alkaline Phosphatase 78 Total Protein 7.2 Albumin 4.0 Urine Color Urine Appearance Urine pH Ur Specific [place] Urine Protein Urine Glucose (UA) Urine Ketones Urine Blood Urine Nitrite Urine Bilirubin Urine Urobilinogen Ur Leukocyte Esterase Urine RBC Urine WBC Ur Epithelial Cells Urine Mucus RPR Titer Nonreactive 09/22/16 09/22/16 09/22/16 11:40 11:55 16:19 WBC RBC Hgb Hct MCV MCHC RDW Plt Count MPV Sodium Potassium Chloride Carbon Dioxide Anion Gap BUN Creatinine Creat Clearance w eGFR POC Glucometer 273 173 Random Glucose Calcium Total Bilirubin AST ALT Alkaline Phosphatase Total Protein Albumin Urine Color Yellow Urine Appearance Clear Urine pH 6.0 Ur Specific [place] 1.016 Urine Protein 1+ H Urine Glucose (UA) 3+ H Urine Ketones Negative Urine Blood Negative Urine Nitrite Negative Urine Bilirubin Negative Urine Urobilinogen Negative Ur Leukocyte Esterase Negative Urine RBC <1 Urine WBC <1 Ur Epithelial Cells Rare Urine Mucus Rare RPR Titer 09/22/16 09/23/1617 20:47 05:38 11:05 WBC RBC Hgb Hct MCV MCHC RDW Plt Count MPV Sodium Potassium Chloride Carbon Dioxide Anion Gap BUN Creatinine Creat Clearance w eGFR POC Glucometer 167 178 239 Random Glucose Calcium Total Bilirubin AST ALT Alkaline Phosphatase Total Protein Albumin Urine Color Urine Appearance Urine pH Ur Specific [place] Urine Protein Urine Glucose (UA) Urine Ketones Urine Blood Urine Nitrite Urine Bilirubin Urine Urobilinogen Ur Leukocyte Esterase Urine RBC Urine WBC Ur Epithelial Cells Urine Mucus RPR Titer 09/23/16 09/23/16 09/24/16 16:13 21:08 05:41 WBC RBC Hgb Hct MCV MCHC RDW Plt Count MPV Sodium Potassium Chloride Carbon Dioxide Anion Gap BUN Creatinine Creat Clearance w eGFR POC Glucometer 240 210 198 Random Glucose Calcium Total Bilirubin AST ALT Alkaline Phosphatase Total Protein Albumin Urine Color Urine Appearance Urine pH Ur Specific [place] Urine Protein Urine Glucose (UA) Urine Ketones Urine Blood Urine Nitrite Urine Bilirubin Urine Urobilinogen Ur Leukocyte Esterase Urine RBC Urine WBC Ur Epithelial Cells Urine Mucus RPR Titer 09/24/16 09/24/16 09/24/16 10:52 16:28 20:45 WBC RBC Hgb Hct MCV MCHC RDW Plt Count MPV Sodium Potassium Chloride Carbon Dioxide Anion Gap BUN Creatinine Creat Clearance w eGFR POC Glucometer 347 264 272 Random Glucose Calcium Total Bilirubin AST ALT Alkaline Phosphatase Total Protein Albumin Urine Color Urine Appearance Urine pH Ur Specific [place] Urine Protein Urine Glucose (UA) Urine Ketones Urine Blood Urine Nitrite Urine Bilirubin Urine Urobilinogen Ur Leukocyte Esterase Urine RBC Urine WBC Ur Epithelial Cells Urine Mucus RPR Titer 09/25/16 09/25/16 09/25/16 05:42 10:29 16:03 WBC RBC Hgb Hct MCV MCHC RDW Plt Count MPV Sodium Potassium Chloride Carbon Dioxide Anion Gap BUN Creatinine Creat Clearance w eGFR POC Glucometer 242 380 252 Random Glucose Calcium Total Bilirubin AST ALT Alkaline Phosphatase Total Protein Albumin Urine Color Urine Appearance Urine pH Ur Specific [place] Urine Protein Urine Glucose (UA) Urine Ketones Urine Blood Urine Nitrite Urine Bilirubin Urine Urobilinogen Ur Leukocyte Esterase Urine RBC Urine WBC Ur Epithelial Cells Urine Mucus RPR Titer 09/26/16 05:45 WBC RBC Hgb Hct MCV MCHC RDW Plt Count MPV Sodium Potassium Chloride Carbon Dioxide Anion Gap BUN Creatinine Creat Clearance w eGFR POC Glucometer 211 Random Glucose Calcium Total Bilirubin AST ALT Alkaline Phosphatase Total Protein Albumin Urine Color Urine Appearance Urine pH Ur Specific [place] Urine Protein Urine Glucose (UA) Urine Ketones Urine Blood Urine Nitrite Urine Bilirubin Urine Urobilinogen Ur Leukocyte Esterase Urine RBC Urine WBC Ur Epithelial Cells Urine Mucus RPR Titer Assessment: 09/26/16 08:33 completed detox, medically stable Plan: d/c today f/u PCP for hyperglycemia and medical care
--- NOTE | 2016-09-26 08:38 | DS ---
[facility] Detox Discharge Summary Admission Date: 09/21/16 Discharge Date: 09/26/16 - History Present History: Alcohol Dependence, Opioid Dependence Pertinent Past History: asthma, bpH, anxiety, depression, and insomnia, DM, obesity, HTN, metabolic syndrome - Physical Exam Results Vital Signs: Vital Signs Temperature 96.4 F L 09/26/16 06:33 Pulse Rate 76 09/26/16 06:33 Respiratory Rate 18 09/26/16 06:33 Blood Pressure 129/82 09/26/16 06:33 O2 Sat by Pulse Oximetry (%) Pertinent Admission Physical Exam Findings: withdrawal sx - Treatment Hospital Course: Detox Protocol Followed, Detoxed Safely, Responded well, Discharged Condition Good, Rehab Referral Accepted - Medication Discharge Medications: Ambulatory Orders Aspirin [ASA -] 81 mg PO DAILY 06/15/13 Atorvastatin Ca [Lipitor] 20 mg PO HS 06/15/13 Flunisolide 0.025 inh IH HS 06/15/13 Gabapentin [Neurontin] 600 mg PO TID 04/10/14 Albuterol Sulfate Inhaler - [Ventolin HFA Inhaler -] 2 inh PO Q4H PRN #1 inh Tamsulosin HCl [Flomax -] 0.4 mg PO DAILY 01/16/15 Lisinopril [Prinivil] 10 mg PO DAILY 05/03/15 Carvedilol [Coreg -] 25 mg PO BID 09/21/16 Insulin (Novolog) [Novolog Flexpen -] 20 units SQ BIDAC 09/21/16 Insulin Glargine,Hum.rec.anlog [Lantus Solostar PEN -] 30 units SQ HS 09/21/16 Nifedipine [Nifedical Xl] 60 mg PO DAILY 09/21/16 - Diagnosis (1) Opioid dependence with withdrawal Current Visit: Yes Status: Chronic (2) Asthma Current Visit: Yes Status: Chronic Qualifiers: Asthma severity: mild intermittent Asthma complication type: uncomplicated Qualified Code(s): J45.20 - Mild intermittent asthma, uncomplicated (3) BPH (benign prostatic hyperplasia) Current Visit: Yes Status: Chronic Qualifiers: Prostatic enlargement morphology: unspecified morphology (4) Essential hypertension Current Visit: Yes Status: Chronic (5) Hypercholesterolemia Current Visit: Yes Status: Chronic (6) Obesity Current Visit: Yes Status: Chronic Qualifiers: Obesity type: unspecified obesity type (7) Peripheral neuropathy Current Visit: Yes Status: Chronic Qualifiers: Peripheral neuropathy type: polyneuropathy, alcohol-induced Qualified Code(s): G62.1 - Alcoholic polyneuropathy (8) Type 2 diabetes mellitus Current Visit: Yes Status: Chronic Qualifiers: Diabetes mellitus complication status: with neurologic complications (9) Acute bronchitis Current Visit: Yes Status: Chronic (10) Atelectasis of left lung Current Visit: No Status: Inactive (11) Alcohol dependence Current Visit: Yes Status: Chronic Qualifiers: Substance use status: in withdrawal (12) Substance induced mood disorder Current Visit: Yes Status: Acute (13) Substance-induced sleep disorder Current Visit: Yes Status: Acute - AMA Did Patient Leave Against Medical Advice: No
[2016-09-26] MEDS: TAMSULOSIN HCL 0.4 MG CAP.ER.24H (FP) PO SCH (09:46)
== END 2016-09-26 09:47 | disposition home or self-care (01) | DRG 897 ==
LOC: YASAS 12:21 → Y3N 16:03
PROVIDERS: ADMIT Internal Medicine; ATTEND Internal Medicine
PROC: HZ2ZZZZ Detoxification Services for Substance Abuse Treatment (ICD-10-PCS; principal; 2016-09-26)
DX: F19.230 Other psychoactive substance dependence with withdrawal, uncomplicated (principal); F19.282 Other psychoactive substance dependence with psychoactive substance-induced sleep disorder; F11.23 Opioid dependence with withdrawal; F10.230 Alcohol dependence with withdrawal, uncomplicated; F19.24 Other psychoactive substance dependence with psychoactive substance-induced mood disorder; G62.1 Alcoholic polyneuropathy; J45.20 Mild intermittent asthma, uncomplicated; I10 Essential (primary) hypertension; E11.69 Type 2 diabetes mellitus with other specified complication; Z79.4 Long term (current) use of insulin; J20.9 Acute bronchitis, unspecified; N40.0 Benign prostatic hyperplasia without lower urinary tract symptoms; E66.9 Obesity, unspecified; Z68.39 Body mass index [BMI] 39.0-39.9, adult
CPT/HCPCS: 36415; 80053; 81003; 81015; 85027; 86593; 93005; 93010

== ENCOUNTER 2017-06-02 13:18 | Inpatient (IN) | payer OTHER ==
[2017-06-02 16:51] VITALS: BMI 40.4
[2017-06-02] MEDS ORDERED: IBUPROFEN 400 MG TABLET (FP) PO PRN (18:42)
[2017-06-02] MEDS ORDERED: chlordiazePOXIDE HCL 25 MG CAPSULE PO PRN (18:42)
[2017-06-02] MEDS ORDERED: METHADONE HCL 10 MG TABLET (FOR DETOX USE ONLY) PO ONE ×2 (18:42→23:00)
[2017-06-02] MEDS ORDERED: MAGNESIUM HYDROX 2400MG/30ML ORAL SUSPENSION 30 ML CUP PO PRN (18:42)
[2017-06-02] MEDS ORDERED: chlordiazePOXIDE HCL 25 MG CAPSULE PO ONE (18:42)
[2017-06-02] MEDS ORDERED: LOPERAMIDE HCL 2 MG CAPSULE PO PRN (18:42)
[2017-06-02] MEDS ORDERED: ACETAMINOPHEN 325 MG TABLET (FP) PO PRN (18:42)
[2017-06-02] MEDS ORDERED: MAG HYDROX/AL HYDROX/SIMETH 30 ML UNIT-DOSE CUP PO PRN (18:42)
[2017-06-02] MEDS ORDERED: guaiFENesin/D-METHORPHAN HB 10 ML UNIT-DOSE CUPS PO PRN (18:42)
[2017-06-02] MEDS ORDERED: MENTHOL/PHENOL 1 EACH UD MM PRN (18:42)
[2017-06-02] MEDS ORDERED: MAGNESIUM CITRATE 300 ML BOTTLE PO PRN (18:42)
[2017-06-02] MEDS ORDERED: P-EPHED 60MG/TRIPROLIDI 2.5MG TABLET PO PRN (18:42)
--- NOTE | 2017-06-02 18:42 | HP ---
COWS - Scale Resting Pulse: 2= [place] 101-120 Sweatin=Flushed/Facial Moisture Restless Observation: 1= Difficult to Sit Still Pupil Size: 1= Pupils >than Normal Bone or Joint Aches: 2= Severe Diffuse Aches Runny Nose/ Eye Tearin= Runny Nose/Eyes GI Upset > 30mins: 2= Nausea/Diarrhea Tremor Observation: 2= Slight Tremor Visible Yawning Observation: 2= >3x During Session Anxiety or Irritability: 2=Irritable/Anxious Goose Flesh Skin: 3=Piloe[place] COWS Score: 21 CIWA Score - CIWA Score Nausea/Vomitin-Int. Nausea w/Dry Heave Muscle Tremors: 4-Moderate,w/Arms Extend Anxiety: 3 Agitation: 4-Moderately Restless Paroxysmal Sweats: 3 Orientation: 0-Oriented Tacttile Disturbances: 1-Very Mild Itch/Numbness Auditory Disturbances: 0-None Visual Disturbances: 0-None Headache: 3-Moderate CIWA-Ar Total Score: 22 Admission [facility] Chief Complaint: alcohol and opioid withdrawal sx Allergies/Adverse Reactions: Allergies Allergy/AdvReac Type Severity Reaction Status Date / Time No Known Allergies Allergy Verified 06/02/17 17:27 History of Present Illness: 57 yo m with h/o chronic alcoholism and opioid use disorder with withdrawal sx, last used pills yesterdayand alcohol 2 nights ago. PMHX obesity, DM, HTN, asthma, s/p total knee replacement, peripheral neuropathy on meds which he take but has recently gained weight with drug use. no h/o OD, no h/o seizures, no DTS. Exam Limitations: No Limitations - Ebola screening Have you traveled outside of the country in the last 21 days: No Have you had contact with anyone from an Ebola affected area: No Have you been sick,other than usual withdrawal symptoms: No Do you have a fever: No - Review of Systems Constitutional: Chills, Diaphoresis, Loss of Appetite, Night Sweats, Weight Stable EENT: reports: Nose Congestion Respiratory: reports: No Symptoms reported Cardiac: reports: No Symptoms Reported GI: reports: Diarrhea, Nausea, Poor Appetite, Poor Fluid Intake, Indigestion : reports: No Symptoms Reported Musculoskeletal: reports: Joint Pain (knee replacement bilaterally), Muscle Pain , Muscle Weakness Integumentary: reports: Flushing, Sweating Neuro: reports: Headache, Numbness, Paresthesia (peripheral neuropathy), Tingling, Tremors, Weakness, Unsteady Gait Endocrine: reports: No Symptoms Reported Hematology: reports: No Symptoms Reported Psychiatric: reports: Judgement Intact, Mood/Affect Appropiate, Orientated x3, Anxious, Depressed Other Systems: Reviewed and Negative Patient History - Patient Medical History Hx Anemia: No Hx Asthma: Yes Hx Chronic Obstructive Pulmonary Disease (COPD): No Hx Cancer: No Hx Cardiac Disorders: No Hx Congestive Heart Failure: No Hx Hypertension: Yes Hx Hypercholesterolemia: Yes (ON MED) Hx Pacemaker: No HX Cerebrovascular Accident: No Hx Seizures: No Hx Dementia: No Hx Diabetes: Yes (AOZ=802) Hx Gastrointestinal Disorders: No Hx Liver Disease: No Hx Genitourinary Disorders: No Hx Sexually Transmitted Disorders: No Hx Renal Disease (ESRD): No Hx Thyroid Disease: No Hx Human Immunodeficiency Virus (HIV): No (NEGATIVE HX) Hx Hepatitis C: No Hx Depression: Yes (AND ANXIETY) Hx Suicide Attempt: No (DENIES) Hx Bipolar Disorder: No Hx Schizophrenia: No - Patient Surgical History Past Surgical History: Yes Hx Neurologic Surgery: No Hx Cataract Extraction: No Hx Cardiac Surgery: No Hx Lung Surgery: No Hx Breast Surgery: No Hx Breast Biopsy: No Hx Abdominal Surgery: No Hx Appendectomy: No Hx Cholecystectomy: No Hx Genitourinary Surgery: No Hx Section: No Hx Orthopedic Surgery: Yes (s/p bilat knee replacement in 2010) Hx Hysterectomy: No Anesthesia Reaction: No - PPD History Previous Implant?: Yes Documented Results: Negative w/proof Implanted On Prior [facility] Admission?: Yes Date: 07/07/14 Results: 0 mm PPD to be Administered?: Yes - Reproductive History Patient is a Female of Child Bearing Age (11 -55 yrs old): No Patient : No - Smoking Cessation Smoking history: Never smoked Have you smoked in the past 12 months: No Hx Chewing Tobacco Use: No Initiated information on smoking cessation: No 'Breaking Loose' booklet given: 06/02/17 - Substance & Tx. History Hx Alcohol Use: Yes Hx Substance Use: Yes Substance Use Type: Alcohol, Opiates, Prescribed Hx Substance Use Treatment: Yes ( [facility]) - Substances Abused Alcohol Route: Oral Frequency: Daily Amount used: bacardi 1 pint Age of first use: 16 Date of Last Use: 05/30/17 percocet Route: Oral Frequency: Daily Amount used: 6 of 10mg Age of first use: 54 Date of Last Use: 06/01/17 Family Disease History - Family Disease History Family Disease History: Diabetes: Father (STOMACH CANCER...), Brother ( STOMACH CANCER..), Other: Father Admission Physical Exam [facility] - Vital Signs Vital Signs: Vital Signs - 24 hr 06/02/17 16:47 Temperature 98.3 F Pulse Rate 70 Respiratory 20 Rate Blood Pressure 119/72 - Physical General Appearance: Yes: Nourished, Appropriately Dressed, Disheveled, Obese, Tremorous, Irritable, Sweating, Anxious HEENTM: Yes: EOMI, Hearing grossly Normal, Normocephalic, SANTI, Pharynx Normal, Nasal Congestion, Rhinorrhea Respiratory: Yes: Within Normal Limits, Chest Non-Tender, Lungs Clear, Normal Breath Sounds, No Respiratory Distress, No Accessory Muscle Use Neck: Yes: Within Normal Limits, No masses,lesions,Nodules, Trachea in good position Breast: Yes: Breast Exam Deferred Cardiology: Yes: Regular Rhythm, Regular Rate, S1, S2 Abdominal: Yes: Normal Bowel Sounds, Non Tender, Soft, Protuberent, Distended Genitourinary: Yes: Within Normal Limits Back: Yes: Decreased Range of Motion, Muscle Spasm, Vertebral Tenderness Musculoskeletal: Yes: Back pain, Joint Stiffness (bilateral knee replacement with scarring), Muscle weakness Extremities: Yes: Tremors Neurological: Yes: systems project manager II-XII NML intact, Fully Oriented, Alert, Motor Strength 5/5, Normal Response, Depressed Affect Integumentary: Yes: Normal Color, Warm, Diaphoresis, Moist Lymphatic: Yes: Within Normal Limits - Addiitonal Findings: withdrawal sx - Diagnostic (1) FH: total knee replacement Current Visit: Yes Status: Chronic (2) Substance induced mood disorder Current Visit: Yes Status: Acute (3) Substance-induced sleep disorder Current Visit: Yes Status: Acute (4) Acute bronchitis Current Visit: No Status: Resolved (5) Asthma Current Visit: No Status: Chronic Qualifiers: Asthma severity: mild intermittent Asthma complication type: uncomplicated Qualified Code(s): J45.20 - Mild intermittent asthma, uncomplicated; J45.20 - Mild intermittent asthma, uncomplicated; J45.20 - Mild intermittent asthma, uncomplicated (6) BPH (benign prostatic hyperplasia) Current Visit: No Status: Chronic (7) Essential hypertension Current Visit: Yes Status: Chronic (8) Hypercholesterolemia Current Visit: Yes Status: Chronic (9) Obesity Current Visit: No Status: Chronic Qualifiers: Obesity type: unspecified obesity type (10) Opioid dependence with withdrawal Current Visit: Yes Status: Acute (11) Peripheral neuropathy Current Visit: Yes Status: Acute Qualifiers: Peripheral neuropathy type: polyneuropathy, alcohol-induced Qualified Code(s): G62.1 - Alcoholic polyneuropathy; G62.1 - Alcoholic polyneuropathy; G62.1 - Alcoholic polyneuropathy; G62.1 - Alcoholic polyneuropathy (12) Type 2 diabetes mellitus Current Visit: Yes Status: Chronic Qualifiers: Diabetes mellitus complication status: with neurologic complications (13) Alcohol dependence with uncomplicated withdrawal Current Visit: Yes Status: Acute Cleared for Admission S - Detox or Rehab [facility] Level of Care: Medically Managed Detox Regimen/Protocol: Methadone/Librium S Breath Alcohol Content Breath Alcohol Content: 0 Urine Drug Screen - Results Drug Screen Negative: No Urine Drug Screen Results: TCA-Tricyclic Antidepress, OXY-Oxycodone
[2017-06-02] MEDS ORDERED: ALBUTEROL SO4 18 GM HFA INHALER IH PRN (18:43)
[2017-06-02 21:56] LABS: URINE APPEARANCE CLEAR; URINE BILIRUBIN NEGATIVE (NEGATIVE); URINE BLOOD NEGATIVE (NEGATIVE); URINE COLOR STRAW; URINE GLUCOSE (UA) 1+ (NEGATIVE); URINE KETONE NEGATIVE (NEGATIVE); URINE NITRITE NEGATIVE (NEGATIVE); URINE UROBILINOGEN NEGATIVE mg/dL (0.2-1.0)
[2017-06-02 22:00] LABS: URINE PROTEIN 1+ (NEGATIVE)
[2017-06-02] MEDS ORDERED: FLUNISOLIDE IH SCH (22:00)
[2017-06-02] MEDS ORDERED: PATIENT'S OWN MEDICATION (NON-FORMULARY) (Gabapentin [Neurontin] 800 MG) PO SCH (22:00)
[2017-06-02 22:10] LABS: URINE MUCUS RARE; URINE RBC <1 /hpf (0-3); URINE WBC <1 /hpf (3-5)
[2017-06-02 22:43] LABS: URINE LEUK ESTERASE Negative (NEGATIVE)
[2017-06-02] MEDS: THIAMINE HCL 100 MG TABLET (FP) PO SCH (22:44)
[2017-06-02] MEDS: CARVEDILOL 25 MG TABLET (FP) PO SCH (22:44)
[2017-06-02] MEDS: ATORVASTATIN CA 20 MG TABLET (FP) PO SCH (22:44)
[2017-06-02] MEDS: chlordiazePOXIDE HCL 25 MG CAPSULE PO SCH (22:44)
[2017-06-02] MEDS: ZOLPIDEM TARTRATE 5 MG TABLET PO PRN (22:52)
[2017-06-02] MEDS: GABAPENTIN 400 MG CAPSULE (FP) PO SCH (22:52)
[2017-06-02] MEDS: INSULIN DETEMIR 100 UNITS/ML MDV SQ SCH (22:53)
[2017-06-03] MEDS: chlordiazePOXIDE HCL 25 MG CAPSULE PO SCH ×4 (05:36→22:43)
[2017-06-03] MEDS ORDERED: INSULIN ASPART SQ SCH (07:00)
[2017-06-03] MEDS ORDERED: INSULIN (NOVOLOG) ASPART 100 UNITS/ML 10ML VIAL SQ SCH (07:00)
[2017-06-03] MEDS ORDERED: [UNRECOGNIZED DRUG - OTHER] SQ SCH (07:00)
[2017-06-03] MEDS ORDERED: PATIENT'S OWN MEDICATION (NON-FORMULARY) (Insulin Glargine,Hum.Rec.Anlog 30 UNITS) SQ SCH (07:00)
[2017-06-03] MEDS: INSULIN DETEMIR 100 UNITS/ML MDV SQ SCH ×3 (08:00→22:43)
[2017-06-03 09:28] LABS: MCH 26.9 pg (25.7-33.7); MCHC 32.4 g/dl (32.0-35.9); MEAN CELL VOLUME 82.8 fl (80-96); MEAN PLT VOLUME 7.9 fl (7.5-11.1); PLATELET COUNT 347 K/MM3 (134-434); WHITE BLOOD COUNT 7.8 K/mm3 (4.0-10.0)
[2017-06-03] MEDS ORDERED: METHADONE HCL 10 MG TABLET (FOR DETOX USE ONLY) PO SCH (10:00)
[2017-06-03] MEDS ORDERED: PATIENT'S OWN MEDICATION (NON-FORMULARY) (Nifedipine [Nifedical Xl] 60 MG) PO SCH (10:00)
[2017-06-03 10:05] LABS: ALBUMIN 3.5 g/dl (3.4-5.0); ALK PHOS 71 U/L (45-117); ANION GAP 6 (8-16); BILIRUBIN,TOTAL 0.5 mg/dL (0.2-1.0); CALCIUM 9.1 mg/dL (8.5-10.1); CO2 33 mmol/L (21-32); CREATININE 0.9 mg/dL (0.7-1.3); GLUCOSE,RANDOM 167 mg/dL (74-106); SGOT/AST 11 U/L (15-37); SGPT/ALT 20 U/L (12-78); TOT PROT 6.6 g/dl (6.4-8.2)
[2017-06-03] MEDS: CARVEDILOL 25 MG TABLET (FP) PO SCH ×2 (10:37→22:43)
[2017-06-03] MEDS: ASPIRIN 81 MG CHEWABLE TABLETS PO SCH (10:37)
[2017-06-03] MEDS: GABAPENTIN 400 MG CAPSULE (FP) PO SCH ×4 (10:37→22:43)
[2017-06-03] MEDS: PRENATAL VITAMINS W/ FOLIC ACID TABLET (FP) PO SCH (10:37)
[2017-06-03] MEDS: TAMSULOSIN HCL 0.4 MG CAP.ER.24H (FP) PO SCH (10:37)
[2017-06-03] MEDS: hydrOXYzine PAMOATE 50 MG CAPSULE (FP) PO PRN (10:37)
[2017-06-03] MEDS: NIFEdipine E.R 60 MG TABLET (UD) PO SCH (10:37)
[2017-06-03] MEDS: LISINOPRIL 20 MG TABLET (FP) PO SCH (10:38)
--- NOTE | 2017-06-03 10:56 | PN ---
[facility] CIWA - CIWA Score Nausea/Vomitin Muscle Tremors: 3 Anxiety: 3 Agitation: 3 Paroxysmal Sweats: 1-Minimal Palms Moist Orientation: 0-Oriented Tacttile Disturbances: 1-Very Mild Itch/Numbness Auditory Disturbances: 1-Very Mild Visual Disturbances: 0-None Headache: 2-Mild CIWA-Ar Total Score: 17 [facility] COWS - Scale Resting Pulse: 1= [place] 81-100 Sweatin= Chills/Flushing Restless Observation: 3= Extraneous Movement Pupil Size: 1= Pupils >than Normal Bone or Joint Aches: 2= Severe Diffuse Aches Runny Nose/ Eye Tearin= Runny Nose/Eyes GI Upset > 30mins: 2= Nausea/Diarrhea Tremor Observation of Outstretched Hands: 2= Slight Tremor Visible Yawning Observation: 1= 1-2x During Session Anxiety or Irritability: 2=Irritable/Anxious Goose Flesh Skin: 0=Smooth Skin COWS Score: 17 [facility] Progress Note (SOAP) Subjective: alert,irritable,anxious,interrupted sleep, Objective: 06/03/17 10:53 Vital Signs Temperature 97.3 F L 06/03/17 06:00 Pulse Rate 71 06/03/17 06:00 Respiratory Rate 20 06/03/17 06:00 Blood Pressure 137/72 06/03/17 06:00 O2 Sat by Pulse Oximetry (%) 06/03/17 10:54 ekg nsr,inverted t in 3 ,avf no chest pain,,no sob,no dizziness Assessment: 06/03/17 10:53 06/03/17 10:54 withdrawal symptom Plan: continue detox,bgm monitoring with insulin coverage
--- NOTE | 2017-06-03 12:03 | EKG ---
Test Reason : Blood Pressure : / mmHG Vent. Rate : 097 BPM Atrial Rate : 097 BPM P-R Int : 138 ms QRS Dur : 076 ms QT Int : 330 ms P-R-T Axes : 059 053 041 degrees QTc Int : 419 ms NORMAL SINUS RHYTHM NONSPECIFIC T WAVE ABNORMALITY ABNORMAL ECG WHEN COMPARED WITH ECG OF 21-SEP-2016 17:08, NO SIGNIFICANT CHANGE WAS FOUND Confirmed by YOLY RG MD ([id number]) on 06/03/2017 12:03:38 PM Referred By: Confirmed By:YOLY RG MD
[2017-06-03] MEDS: INSULIN (NOVOLOG) ASPART 100 UNITS/ML 10ML VIAL SQ SCH ×2 (12:52→17:04)
--- NOTE | 2017-06-03 19:44 | PN ---
S Progress Note Note: 1630 bgm 160 hold novolog 10 units continue detox
[2017-06-03] MEDS: THIAMINE HCL 100 MG TABLET (FP) PO SCH (22:43)
[2017-06-03] MEDS: ATORVASTATIN CA 20 MG TABLET (FP) PO SCH (22:43)
[2017-06-03] MEDS: ZOLPIDEM TARTRATE 5 MG TABLET PO PRN (22:43)
[2017-06-04] MEDS: chlordiazePOXIDE HCL 25 MG CAPSULE PO SCH ×3 (05:35→16:59)
[2017-06-04] MEDS ORDERED: INSULIN (NOVOLOG) ASPART 100 UNITS/ML 10ML VIAL ONE (06:33)
[2017-06-04] MEDS: INSULIN (NOVOLOG) ASPART 100 UNITS/ML 10ML VIAL SQ SCH ×3 (07:33→16:59)
[2017-06-04] MEDS: ASPIRIN 81 MG CHEWABLE TABLETS PO SCH (10:35)
[2017-06-04] MEDS: PRENATAL VITAMINS W/ FOLIC ACID TABLET (FP) PO SCH (10:35)
[2017-06-04] MEDS: GABAPENTIN 400 MG CAPSULE (FP) PO SCH ×4 (10:35→22:31)
[2017-06-04] MEDS: METHADONE HCL 5 MG TABLET (FOR DETOX USE ONLY) PO SCH (10:36)
[2017-06-04] MEDS: NIFEdipine E.R 60 MG TABLET (UD) PO SCH (10:36)
[2017-06-04] MEDS: TAMSULOSIN HCL 0.4 MG CAP.ER.24H (FP) PO SCH (10:36)
[2017-06-04] MEDS: LISINOPRIL 20 MG TABLET (FP) PO SCH (10:36)
[2017-06-04] MEDS: CARVEDILOL 25 MG TABLET (FP) PO SCH ×2 (10:36→22:33)
--- NOTE | 2017-06-04 11:12 | PN ---
[facility] COWS - Scale Resting Pulse: 1= [place] 81-100 Sweatin= Chills/Flushing Restless Observation: 3= Extraneous Movement Pupil Size: 1= Pupils >than Normal Bone or Joint Aches: 2= Severe Diffuse Aches Runny Nose/ Eye Tearin= Runny Nose/Eyes GI Upset > 30mins: 2= Nausea/Diarrhea Tremor Observation of Outstretched Hands: 2= Slight Tremor Visible Yawning Observation: 1= 1-2x During Session Anxiety or Irritability: 2=Irritable/Anxious Goose Flesh Skin: 0=Smooth Skin COWS Score: 17 [facility] Progress Note (SOAP) Subjective: alert,irritable,anxious,interrupted sleep,tremor,pain in the body and back Objective: 06/04/17 11:11 Vital Signs Temperature 98.1 F 06/04/17 09:30 Pulse Rate 95 H 06/04/17 09:30 Respiratory Rate 20 06/04/17 09:30 Blood Pressure 149/69 06/04/17 09:30 O2 Sat by Pulse Oximetry (%) Laboratory Last Values WBC 7.8 K/mm3 (4.0-10.0) 06/03/17 07:00 RBC 4.48 M/mm3 (4.00-5.60) 06/03/17 07:00 Hgb 12.0 GM/dL (11.7-16.9) 06/03/17 07:00 Hct 37.1 % (35.4-49) 06/03/17 07:00 MCV 82.8 fl (80-96) 06/03/17 07:00 MCH 26.9 pg (25.7-33.7) 06/03/17 07:00 MCHC 32.4 g/dl (32.0-35.9) 06/03/17 07:00 RDW 14.0 % (11.9-15.9) 06/03/17 07:00 Plt Count 347 K/MM3 (134-434) 06/03/17 07:00 MPV 7.9 fl (7.5-11.1) 06/03/17 07:00 Sodium 140 mmol/L (136-145) 06/03/17 07:00 Potassium 4.5 mmol/L (3.5-5.1) 06/03/17 07:00 Chloride 101 mmol/L (98-107) 06/03/17 07:00 Carbon Dioxide 33 mmol/L (21-32) H 06/03/17 07:00 Anion Gap 6 (8-16) L 06/03/17 07:00 BUN 13 mg/dL (7-18) D 06/03/17 07:00 Creatinine 0.9 mg/dL (0.7-1.3) 06/03/17 07:00 Creat Clearance w eGFR > 60 (>60) 06/03/17 07:00 POC Glucometer 212 UNITS (()) 06/04/17 05:34 Random Glucose 167 mg/dL (74-106) H 06/03/17 07:00 Calcium 9.1 mg/dL (8.5-10.1) 06/03/17 07:00 Total Bilirubin 0.5 mg/dL (0.2-1.0) D 06/03/17 07:00 AST 11 U/L (15-37) L D 06/03/17 07:00 ALT 20 U/L (12-78) 06/03/17 07:00 Alkaline Phosphatase 71 U/L (45-117) 06/03/17 07:00 Total Protein 6.6 g/dl (6.4-8.2) 06/03/17 07:00 Albumin 3.5 g/dl (3.4-5.0) 06/03/17 07:00 Urine Color Straw 06/02/17 21:30 Urine Appearance Clear 06/02/17 21:30 Urine pH 5.0 (5.0-8.0) 06/02/17 21:30 Ur Specific [place] 1.010 (1.005-1.025) 06/02/17 21:30 Urine Protein 1+ (NEGATIVE) H 06/02/17 21:30 Urine Glucose (UA) 1+ (NEGATIVE) H 06/02/17 21:30 Urine Ketones Negative (NEGATIVE) 06/02/17 21:30 Urine Blood Negative (NEGATIVE) 06/02/17 21:30 Urine Nitrite Negative (NEGATIVE) 06/02/17 21:30 Urine Bilirubin Negative (NEGATIVE) 06/02/17 21:30 Urine Urobilinogen Negative mg/dL (0.2-1.0) 06/02/17 21:30 Ur Leukocyte Esterase Negative (NEGATIVE) 06/02/17 21:30 Urine RBC <1 /hpf (0-3) 06/02/17 21:30 Urine WBC <1 /hpf (3-5) 06/02/17 21:30 Ur Epithelial Cells Rare /hpf (FEW) 06/02/17 21:30 Urine Mucus Rare 06/02/17 21:30 RPR Titer Nonreactive (NONREACTIVE) 06/03/17 07:00 Assessment: 06/04/17 11:11 withdrawal symptom Plan: continue detox,bgm monitoring with insulin coverage
[2017-06-04] MEDS: INSULIN DETEMIR 100 UNITS/ML MDV SQ SCH ×2 (11:28→22:32)
[2017-06-04] MEDS: THIAMINE HCL 100 MG TABLET (FP) PO SCH (22:31)
[2017-06-04] MEDS: ZOLPIDEM TARTRATE 5 MG TABLET PO PRN (22:32)
[2017-06-04] MEDS: chlordiazePOXIDE 5 MG CAPSULE PO SCH (22:32)
[2017-06-04] MEDS: ATORVASTATIN CA 20 MG TABLET (FP) PO SCH (22:33)
[2017-06-04] MEDS: ALBUTEROL SO4 18 GM HFA INHALER IH PRN (22:33)
[2017-06-05] MEDS: chlordiazePOXIDE 5 MG CAPSULE PO SCH ×3 (05:18→16:56)
[2017-06-05] MEDS ORDERED: INSULIN (NOVOLOG) ASPART 100 UNITS/ML 10ML VIAL ONE (07:36)
[2017-06-05] MEDS: INSULIN (NOVOLOG) ASPART 100 UNITS/ML 10ML VIAL SQ SCH ×3 (07:38→16:57)
[2017-06-05] MEDS: TAMSULOSIN HCL 0.4 MG CAP.ER.24H (FP) PO SCH (10:28)
[2017-06-05] MEDS: PRENATAL VITAMINS W/ FOLIC ACID TABLET (FP) PO SCH (10:28)
[2017-06-05] MEDS: LISINOPRIL 20 MG TABLET (FP) PO SCH (10:29)
[2017-06-05] MEDS: GABAPENTIN 400 MG CAPSULE (FP) PO SCH ×4 (10:29→22:28)
[2017-06-05] MEDS: hydrOXYzine PAMOATE 50 MG CAPSULE (FP) PO PRN (10:29)
[2017-06-05] MEDS: ASPIRIN 81 MG CHEWABLE TABLETS PO SCH (10:29)
[2017-06-05] MEDS: METHADONE HCL 5 MG TABLET (FOR DETOX USE ONLY) PO SCH (10:29)
[2017-06-05] MEDS: NIFEdipine E.R 60 MG TABLET (UD) PO SCH (10:29)
[2017-06-05] MEDS: CARVEDILOL 25 MG TABLET (FP) PO SCH ×2 (10:29→22:28)
[2017-06-05] MEDS: ALBUTEROL SO4 18 GM HFA INHALER IH PRN (10:30)
[2017-06-05] MEDS: INSULIN DETEMIR 100 UNITS/ML MDV SQ SCH ×2 (11:30→22:25)
--- NOTE | 2017-06-05 12:43 | PN ---
S Progress Note (SOAP) Subjective: alert,irritable,anxious,interrupted sleep,pain in the body Objective: 06/05/17 12:41 Vital Signs Temperature 97.9 F 06/05/17 10:28 Pulse Rate 91 H 06/05/17 10:28 Respiratory Rate 20 06/05/17 10:28 Blood Pressure 156/81 06/05/17 10:28 O2 Sat by Pulse Oximetry (%) 06/05/17 12:42 bgm 200 Assessment: 06/05/17 12:42 withdrawal symptom Plan: continue detox,bgm monitoring with insulin coverage
[2017-06-05] MEDS: FLUTICASONE PROP 0.05% 16 GM NASAL SPRAY NS SCH ×2 (14:38→22:30)
[2017-06-05] MEDS: ZOLPIDEM TARTRATE 5 MG TABLET PO PRN (22:28)
[2017-06-05] MEDS: THIAMINE HCL 100 MG TABLET (FP) PO SCH (22:28)
[2017-06-05] MEDS: chlordiazePOXIDE HCL 10 MG CAPSULE PO SCH (22:28)
[2017-06-05] MEDS: ATORVASTATIN CA 20 MG TABLET (FP) PO SCH (22:28)
[2017-06-06] MEDS: chlordiazePOXIDE HCL 10 MG CAPSULE PO SCH ×3 (05:48→17:18)
[2017-06-06] MEDS: INSULIN (NOVOLOG) ASPART 100 UNITS/ML 10ML VIAL SQ SCH ×3 (08:00→17:19)
[2017-06-06] MEDS ORDERED: METHADONE HCL 10 MG TABLET (FOR DETOX USE ONLY) PO SCH (10:00)
[2017-06-06] MEDS: PRENATAL VITAMINS W/ FOLIC ACID TABLET (FP) PO SCH (10:35)
[2017-06-06] MEDS: LISINOPRIL 20 MG TABLET (FP) PO SCH (10:35)
[2017-06-06] MEDS: FLUTICASONE PROP 0.05% 16 GM NASAL SPRAY NS SCH ×2 (10:35→22:29)
[2017-06-06] MEDS: ASPIRIN 81 MG CHEWABLE TABLETS PO SCH (10:35)
[2017-06-06] MEDS: CARVEDILOL 25 MG TABLET (FP) PO SCH ×2 (10:35→22:29)
[2017-06-06] MEDS: NIFEdipine E.R 60 MG TABLET (UD) PO SCH (10:35)
[2017-06-06] MEDS: TAMSULOSIN HCL 0.4 MG CAP.ER.24H (FP) PO SCH (10:35)
[2017-06-06] MEDS: GABAPENTIN 400 MG CAPSULE (FP) PO SCH ×4 (10:36→22:29)
[2017-06-06] MEDS: ALBUTEROL SO4 18 GM HFA INHALER IH PRN ×2 (10:39→22:34)
[2017-06-06] MEDS: INSULIN DETEMIR 100 UNITS/ML MDV SQ SCH ×2 (11:00→22:30)
[2017-06-06] MEDS ORDERED: Insulin (LOG) Aspart 100 UNITS/ML VIAL SQ ONE (11:01)
--- NOTE | 2017-06-06 13:15 | PN ---
S Progress Note (SOAP) Subjective: ALERT,IRRITABLE,ANXIOUS,INTERRUPTED SLEEP,FEEL DEPRESS Objective: 06/06/17 13:11 Vital Signs Temperature 97.5 F L 06/06/17 10:58 Pulse Rate 90 06/06/17 10:58 Respiratory Rate 16 06/06/17 10:58 Blood Pressure 150/82 06/06/17 10:58 O2 Sat by Pulse Oximetry (%) 06/06/17 13:11 Laboratory Last Values WBC 7.8 K/mm3 (4.0-10.0) 06/03/17 07:00 RBC 4.48 M/mm3 (4.00-5.60) 06/03/17 07:00 Hgb 12.0 GM/dL (11.7-16.9) 06/03/17 07:00 Hct 37.1 % (35.4-49) 06/03/17 07:00 MCV 82.8 fl (80-96) 06/03/17 07:00 MCH 26.9 pg (25.7-33.7) 06/03/17 07:00 MCHC 32.4 g/dl (32.0-35.9) 06/03/17 07:00 RDW 14.0 % (11.9-15.9) 06/03/17 07:00 Plt Count 347 K/MM3 (134-434) 06/03/17 07:00 MPV 7.9 fl (7.5-11.1) 06/03/17 07:00 Sodium 140 mmol/L (136-145) 06/03/17 07:00 Potassium 4.5 mmol/L (3.5-5.1) 06/03/17 07:00 Chloride 101 mmol/L (98-107) 06/03/17 07:00 Carbon Dioxide 33 mmol/L (21-32) H 06/03/17 07:00 Anion Gap 6 (8-16) L 06/03/17 07:00 BUN 13 mg/dL (7-18) D 06/03/17 07:00 Creatinine 0.9 mg/dL (0.7-1.3) 06/03/17 07:00 Creat Clearance w eGFR > 60 (>60) 06/03/17 07:00 POC Glucometer 319 UNITS (()) 06/06/17 10:58 Random Glucose 167 mg/dL (74-106) H 06/03/17 07:00 Calcium 9.1 mg/dL (8.5-10.1) 06/03/17 07:00 Total Bilirubin 0.5 mg/dL (0.2-1.0) D 06/03/17 07:00 AST 11 U/L (15-37) L D 06/03/17 07:00 ALT 20 U/L (12-78) 06/03/17 07:00 Alkaline Phosphatase 71 U/L (45-117) 06/03/17 07:00 Total Protein 6.6 g/dl (6.4-8.2) 06/03/17 07:00 Albumin 3.5 g/dl (3.4-5.0) 06/03/17 07:00 Urine Color Straw 06/02/17 21:30 Urine Appearance Clear 06/02/17 21:30 Urine pH 5.0 (5.0-8.0) 06/02/17 21:30 Ur Specific [place] 1.010 (1.005-1.025) 06/02/17 21:30 Urine Protein 1+ (NEGATIVE) H 06/02/17 21:30 Urine Glucose (UA) 1+ (NEGATIVE) H 06/02/17 21:30 Urine Ketones Negative (NEGATIVE) 06/02/17 21:30 Urine Blood Negative (NEGATIVE) 06/02/17 21:30 Urine Nitrite Negative (NEGATIVE) 06/02/17 21:30 Urine Bilirubin Negative (NEGATIVE) 06/02/17 21:30 Urine Urobilinogen Negative mg/dL (0.2-1.0) 06/02/17 21:30 Ur Leukocyte Esterase Negative (NEGATIVE) 06/02/17 21:30 Urine RBC <1 /hpf (0-3) 06/02/17 21:30 Urine WBC <1 /hpf (3-5) 06/02/17 21:30 Ur Epithelial Cells Rare /hpf (FEW) 06/02/17 21:30 Urine Mucus Rare 06/02/17 21:30 RPR Titer Nonreactive (NONREACTIVE) 06/03/17 07:00 Assessment: 06/06/17 13:12 WITHDRAWAL SYMPTOM Plan: CONTINUE DETOX,BGM MONITORING,PSYCHIATRIC EVALUATION FOR DEPRESSION,DISCHARGE IN AM
[2017-06-06] MEDS: ZOLPIDEM TARTRATE 5 MG TABLET PO PRN (22:28)
[2017-06-06] MEDS: THIAMINE HCL 100 MG TABLET (FP) PO SCH (22:29)
[2017-06-06] MEDS: ATORVASTATIN CA 20 MG TABLET (FP) PO SCH (22:29)
[2017-06-07] MEDS ORDERED: METHADONE HCL 5 MG TABLET (FOR DETOX USE ONLY) PO SCH (06:00)
[2017-06-07] MEDS ORDERED: INSULIN (NOVOLOG) ASPART 100 UNITS/ML 10ML VIAL ONE (07:42)
[2017-06-07] MEDS: INSULIN (NOVOLOG) ASPART 100 UNITS/ML 10ML VIAL SQ SCH (07:44)
--- NOTE | 2017-06-07 09:03 | DS ---
[facility] Detox Discharge Summary Admission Date: 06/02/17 Discharge Date: 06/07/17 - History Present History: Alcohol Dependence, Opioid Dependence Additional Comments: follow up with after [facility] program as arrangement Pertinent Past History: asthma history of total knee replacement acute bronchitis bph essential hypertension hpercholesterolemia type 2 dm peripheral neuropathy - Physical Exam Results Vital Signs: Vital Signs Temperature 97.5 F L 06/07/17 05:43 Pulse Rate 75 06/07/17 05:43 Respiratory Rate 18 06/07/17 05:43 Blood Pressure 111/70 06/07/17 05:43 O2 Sat by Pulse Oximetry (%) Pertinent Admission Physical Exam Findings: withdrawal symptom - Treatment Hospital Course: Detox Protocol Followed, Detoxed Safely, Responded well, Discharged Condition Good Patient has Accepted a Rehab Referral to: declined - Medication Discharge Medications: Ambulatory Orders Aspirin [ASA -] 81 mg PO DAILY 06/15/13 Atorvastatin Ca [Lipitor] 20 mg PO HS 06/15/13 Flunisolide 0.025 inh IH HS 06/15/13 Gabapentin [Neurontin] 800 mg PO QID 04/10/14 Albuterol Sulfate Inhaler - [Ventolin HFA Inhaler -] 2 inh PO Q4H PRN #1 inh Tamsulosin HCl [Flomax -] 0.4 mg PO DAILY 01/16/15 Lisinopril [Prinivil] 20 mg PO DAILY 05/03/15 Carvedilol [Coreg -] 25 mg PO BID 09/21/16 Insulin (Novolog) [Novolog Flexpen -] 20 units SQ BIDAC 09/21/16 Insulin Glargine,Hum.rec.anlog [Lantus Solostar PEN -] 30 units SQ BIDAC Nifedipine [Nifedical Xl] 60 mg PO DAILY 09/21/16 - Diagnosis (1) Alcohol dependence with uncomplicated withdrawal Current Visit: Yes Status: Acute (2) Opioid dependence with withdrawal Current Visit: Yes Status: Acute (3) Peripheral neuropathy Current Visit: Yes Status: Acute Qualifiers: Peripheral neuropathy type: polyneuropathy, alcohol-induced Qualified Code(s): G62.1 - Alcoholic polyneuropathy; G62.1 - Alcoholic polyneuropathy; G62.1 - Alcoholic polyneuropathy; G62.1 - Alcoholic polyneuropathy (4) Substance induced mood disorder Current Visit: Yes Status: Acute (5) Substance-induced sleep disorder Current Visit: Yes Status: Acute (6) Essential hypertension Current Visit: Yes Status: Chronic (7) FH: total knee replacement Current Visit: Yes Status: Chronic (8) Hypercholesterolemia Current Visit: Yes Status: Chronic (9) Type 2 diabetes mellitus Current Visit: Yes Status: Chronic Qualifiers: Diabetes mellitus complication status: with neurologic complications (10) Asthma Current Visit: No Status: Chronic Qualifiers: Asthma severity: mild intermittent Asthma complication type: uncomplicated Qualified Code(s): J45.20 - Mild intermittent asthma, uncomplicated; J45.20 - Mild intermittent asthma, uncomplicated; J45.20 - Mild intermittent asthma, uncomplicated (11) BPH (benign prostatic hyperplasia) Current Visit: No Status: Chronic (12) Obesity Current Visit: No Status: Chronic Qualifiers: Obesity type: unspecified obesity type (13) Bronchitis Current Visit: Yes Status: Acute - AMA Did Patient Leave Against Medical Advice: No
--- NOTE | 2017-06-07 09:23 | PN ---
[facility] Progress Note Note: addendum patient did not want to see psychiatrist,state that he is doing well, no depression,no need for him to see psychiatrist,he will follow up with his pmd and psychiatrist as necessary
[2017-06-07 11:05] VITALS: BP 142/82; PULSE 91; TEMP 97.7
== END 2017-06-07 10:00 | disposition home or self-care (01) | DRG 897 ==
LOC: YASAS 13:18 → Y6N 18:10
PROVIDERS: ADMIT Internal Medicine; ATTEND Internal Medicine
PROC: HZ2ZZZZ Detoxification Services for Substance Abuse Treatment (ICD-10-PCS; principal; 2017-06-02)
DX: F11.23 Opioid dependence with withdrawal (principal); F19.282 Other psychoactive substance dependence with psychoactive substance-induced sleep disorder; Z68.41 Body mass index [BMI] 40.0-44.9, adult; F10.230 Alcohol dependence with withdrawal, uncomplicated; F19.24 Other psychoactive substance dependence with psychoactive substance-induced mood disorder; G62.1 Alcoholic polyneuropathy; I10 Essential (primary) hypertension; Z96.653 Presence of artificial knee joint, bilateral; E78.00 Pure hypercholesterolemia, unspecified; E11.9 Type 2 diabetes mellitus without complications; J45.20 Mild intermittent asthma, uncomplicated; N40.0 Benign prostatic hyperplasia without lower urinary tract symptoms; E66.9 Obesity, unspecified; J20.9 Acute bronchitis, unspecified; Z98.2 Presence of cerebrospinal fluid drainage device; Z79.4 Long term (current) use of insulin
CPT/HCPCS: 36415; 80053; 81003; 81015; 85027; 86593; 93005; 93010

== ENCOUNTER 2018-10-05 15:33 | Inpatient (IN) | payer OTHER ==
[2018-10-05 17:42] VITALS: BMI 38.4
--- NOTE | 2018-10-05 18:46 | HP ---
COWS - Scale Resting Pulse: 2= [place] 101-120 Sweatin= Chills/Flushing Restless Observation: 3= Extraneous Movement Pupil Size: 1= Pupils >than Normal Bone or Joint Aches: 2= Severe Diffuse Aches Runny Nose/ Eye Tearin= Nasal Congestion GI Upset > 30mins: 1= Stomach Cramp Tremor Observation: 1= Tremor [place], Not Seen Yawning Observation: 0= None Anxiety or Irritability: 1=Feels Anxious/Irritable Goose Flesh Skin: 3=Piloerection COWS Score: 16 CIWA Score - Admission Criteria OASAS Guidelines: Admission for Medically Managed Detox: Requires at least one of the followin. CIWA greater than 12 2. Seizures within the past 24 hours 3. Delirium tremens within the past 24 hours 4. Hallucinations within the past 24 hours 5. Acute intervention needed for co occurring medical disorder 6. Acute intervention needed for co occurring psychiatric disorder 7. Severe withdrawal that cannot be handled at a lower level of care (continued vomiting, continued diarrhea, abnormal vital signs) requiring intravenous medication and/or fluids 8. Admission ROS [facility] Chief Complaint: heroin detox- pt just received 40 tabs of percocets on 09/27/18-10mg tabs as a 7 day prescription. Prior prescription was on 08/26/18, #40 tabs. 58 yo with h/o HTN, DM, spinal stenosis- neuropathy. Last time in detox in 2017 at [facility]. Then relapsed to using percocets. DUR- 40 tabs of percocets on 09/27/18 and Lyrica for neuropathy Utox- oxy, no heroin use Allergies/Adverse Reactions: Allergies Allergy/AdvReac Type Severity Reaction Status Date / Time No Known Allergies Allergy Verified 06/02/17 17:27 - Ebola screening Have you traveled outside of the country in the last 21 days: No Have you had contact with anyone from an Ebola affected area: No Have you been sick,other than usual withdrawal symptoms: No Patient History - Patient Medical History Hx Anemia: No Hx Asthma: Yes Hx Chronic Obstructive Pulmonary Disease (COPD): No Hx Cancer: No Hx Cardiac Disorders: No Hx Congestive Heart Failure: No Hx Hypertension: Yes Hx Hypercholesterolemia: Yes (ON MED) Hx Pacemaker: No HX Cerebrovascular Accident: No Hx Seizures: No Hx Dementia: No Hx Diabetes: Yes (JTQ=557) Hx Gastrointestinal Disorders: No Hx Liver Disease: No Hx Genitourinary Disorders: No Hx Sexually Transmitted Disorders: No Hx Renal Disease (ESRD): No Hx Thyroid Disease: No Hx Human Immunodeficiency Virus (HIV): No (NEGATIVE HX) Hx Hepatitis C: No Hx Depression: Yes (AND ANXIETY) Hx Suicide Attempt: No (DENIES) Hx Bipolar Disorder: No Hx Schizophrenia: No Other Medical History: h/o shingles ~ T 10 dermatome - Patient Surgical History Past Surgical History: Yes Hx Neurologic Surgery: No Hx Cataract Extraction: No Hx Cardiac Surgery: No Hx Lung Surgery: No Hx Breast Surgery: No Hx Breast Biopsy: No Hx Abdominal Surgery: No Hx Appendectomy: No Hx Cholecystectomy: No Hx Genitourinary Surgery: No Hx Section: No Hx Orthopedic Surgery: Yes (s/p bilat knee replacement in 2010) Hx Hysterectomy: No Anesthesia Reaction: No - PPD History Date: 06/04/17 Results: 0 mm - Smoking Cessation Smoking history: Never smoked Have you smoked in the past 12 months: No Hx Chewing Tobacco Use: No - Substance & Tx. History Substance Use Type: Prescribed Family Disease History - Family Disease History Family Disease History: Diabetes: Father (STOMACH CANCER...), Brother ( STOMACH CANCER..), Other: Father Admission Physical Exam BHS - Vital Signs Vital Signs: Vital Signs - 24 hr 10/05/18 17:40 Temperature 96.7 F L Pulse Rate 90 Respiratory 18 Rate Blood Pressure 188/105 H - Physical General Appearance: Yes: Within Normal Limits HEENTM: Yes: Within Normal Limits, Hearing grossly Normal, Normal Voice, SANTI, Microcephalic Respiratory: Yes: Within Normal Limits Neck: Yes: Within Normal Limits Cardiology: Yes: Within Normal Limits, Regular Rate, S1, S2 Abdominal: Yes: Within Normal Limits, Non Tender, Protuberent, Distended Back: Yes: Within Normal Limits Musculoskeletal: Yes: Within Normal Limits Extremities: Yes: Within Normal Limits Neurological: Yes: Within Normal Limits Integumentary: Yes: Within Normal Limits Lymphatic: Yes: Within Normal Limits - Diagnostic (1) Opioid dependence with withdrawal Current Visit: No Status: Acute (2) Peripheral neuropathy Current Visit: No Status: Acute Qualifiers: Peripheral neuropathy type: polyneuropathy, alcohol-induced Qualified Code( s): G62.1 - Alcoholic polyneuropathy (3) Asthma Current Visit: No Status: Chronic Qualifiers: Asthma severity: mild intermittent Asthma complication type: uncomplicated Qualified Code(s): J45.20 - Mild intermittent asthma, uncomplicated (4) Essential hypertension Current Visit: No Status: Chronic (5) Obesity Current Visit: No Status: Chronic Qualifiers: Obesity type: unspecified obesity type (6) Type 2 diabetes mellitus Current Visit: No Status: Chronic Qualifiers: Diabetes mellitus complication status: with neurologic complications BHS Breath Alcohol Content Breath Alcohol Content: 0 Urine Drug Screen - Results Drug Screen Negative: No Urine Drug Screen Results: OXY-Oxycodone Inpatient Rehab Admission - Rehab Decision to Admit Inpatient rehab admission?: No
[2018-10-05] MEDS ORDERED: hydrOXYzine PAMOATE 50 MG CAPSULE (FP) PO PRN (18:51)
[2018-10-05] MEDS ORDERED: ACETAMINOPHEN 325 MG TABLET (FP) PO PRN (18:51)
[2018-10-05] MEDS ORDERED: guaiFENesin/D-METHORPHAN HB 10 ML UNIT-DOSE CUPS PO PRN (18:51)
[2018-10-05] MEDS ORDERED: IBUPROFEN 400 MG TABLET (FP) PO PRN (18:51)
[2018-10-05] MEDS ORDERED: MENTHOL/PHENOL 1 EACH UD MM PRN (18:51)
[2018-10-05] MEDS ORDERED: LOPERAMIDE HCL 2 MG CAPSULE PO PRN (18:51)
[2018-10-05] MEDS ORDERED: P-EPHED 60MG/TRIPROLIDI 2.5MG TABLET PO PRN (18:51)
[2018-10-05] MEDS ORDERED: MAG HYDROX/AL HYDROX/SIMETH 30 ML UNIT-DOSE CUP PO PRN (18:51)
[2018-10-05] MEDS ORDERED: MAGNESIUM HYDROX 2400MG/30ML ORAL SUSPENSION 30 ML CUP PO PRN (18:51)
[2018-10-05] MEDS ORDERED: MAGNESIUM CITRATE 300 ML BOTTLE PO PRN (18:51)
[2018-10-05] MEDS ORDERED: METHADONE HCL 10 MG TABLET (FOR DETOX USE ONLY) PO ONE ×2 (20:00→23:00)
[2018-10-05] MEDS: THIAMINE HCL 100 MG TABLET (FP) PO SCH (21:24)
[2018-10-05] MEDS: diazePAM 5 MG TABLET PO PRN (21:25)
[2018-10-05] MEDS ORDERED: cloNIDine HCL 0.1 MG TABLET PO ONE (22:00)
[2018-10-05] MEDS: ATORVASTATIN CA 20 MG TABLET (FP) PO SCH (22:39)
[2018-10-05] MEDS: ALBUTEROL SO4 8 GM HFA INHALER IH PRN (22:40)
[2018-10-05 23:41] LABS: URINE APPEARANCE CLEAR; URINE BILIRUBIN NEGATIVE (<2.0 mg/dL); URINE COLOR YELLOW; URINE GLUCOSE (UA) 1+ (NEGATIVE); URINE KETONE NEGATIVE (NEGATIVE); URINE LEUK ESTERASE NEGATIVE (NEGATIVE); URINE NITRITE NEGATIVE (NEGATIVE); URINE PROTEIN 3+ (NEGATIVE); URINE UROBILINOGEN NEGATIVE mg/dL (0.2-1.0)
[2018-10-05 23:54] LABS: URINE HYALINE CAST 1 /lpf; URINE MUCUS RARE; YEAST MANY
[2018-10-06] MEDS: MELATONIN 5 MG TABLETS PO PRN (00:32)
[2018-10-06] MEDS: diazePAM 5 MG TABLET PO PRN ×2 (05:05→17:41)
[2018-10-06] MEDS ORDERED: INSULIN SLIDING SCALE (NOVOLOG) 1 VIAL SQ ONE ×3 (06:52→13:54)
[2018-10-06] MEDS ORDERED: INSULIN (LEVEMIR) 100 UNITS/ML UNITS SQ SCH (07:00)
[2018-10-06] MEDS ORDERED: INSULIN (NOVOLOG) ASPART 100 UNITS/ML 10ML VIAL SQ SCH (07:00)
[2018-10-06] MEDS: metFORMIN HCL 500 MG TABLET (FP) PO SCH ×2 (07:49→17:40)
--- NOTE | 2018-10-06 09:08 | PN ---
BHS COWS - Scale Resting Pulse: 0= [place] 80 or Below Sweatin= Chills/Flushing Restless Observation: 1= Difficult to Sit Still Pupil Size: 1= Pupils >than Normal Bone or Joint Aches: 1= Mild Discomfort Runny Nose/ Eye Tearin= Nasal Congestion GI Upset > 30mins: 1= Stomach Cramp Tremor Observation of Outstretched Hands: 2= Slight Tremor Visible Yawning Observation: 2= >3x During Session Anxiety or Irritability: 2=Irritable/Anxious Goose Flesh Skin: 0=Smooth Skin COWS Score: 12 BHS Progress Note (SOAP) Subjective: trouble sleep at night melatoin no working trazadon 50 mg x 1 at hs body ache tremor muscle pain Objective: 10/06/18 09:52 Vital Signs Temperature 97.1 F L 10/06/18 09:34 Pulse Rate 81 10/06/18 09:34 Respiratory Rate 18 10/06/18 09:34 Blood Pressure 144/85 10/06/18 09:34 O2 Sat by Pulse Oximetry (%) Laboratory Last Values POC Glucometer 193 UNITS (80-120) 10/06/18 05:04 Urine Color Yellow 10/05/18 22:45 Urine Appearance Clear 10/05/18 22:45 Urine pH 6.0 (5.0-8.0) 10/05/18 22:45 Ur Specific [place] 1.025 (1.010-1.035) 10/05/18 22:45 Urine Protein 3+ (NEGATIVE) H D 10/05/18 22:45 Urine Glucose (UA) 1+ (NEGATIVE) H 10/05/18 22:45 Urine Ketones Negative (NEGATIVE) 10/05/18 22:45 Urine Blood Negative (NEGATIVE) 10/05/18 22:45 Urine Nitrite Negative (NEGATIVE) 10/05/18 22:45 Urine Bilirubin Negative (<2.0 mg/dL) 10/05/18 22:45 Urine Urobilinogen Negative mg/dL (0.2-1.0) 10/05/18 22:45 Ur Leukocyte Esterase Negative (NEGATIVE) 10/05/18 22:45 Urine WBC (Auto) 1 /hpf (3-5) 10/05/18 22:45 Urine RBC (Auto) 24 /hpf (0-3) 10/05/18 22:45 Hyaline Casts 1 /lpf 10/05/18 22:45 Urine Mucus Rare 10/05/18 22:45 Urine Yeast Many 10/05/18 22:45 lab noted Assessment: 10/06/18 09:52 withdrawal sx diabetes 10/06/18 09:53 trouble slept through the night Plan: continue detox trazodone 50 mg x 1 dose
[2018-10-06] MEDS: TAMSULOSIN HCL 0.4 MG CAP PO SCH (09:18)
[2018-10-06] MEDS ORDERED: METHADONE HCL 10 MG TABLET (FOR DETOX USE ONLY) PO ONE (10:00)
[2018-10-06] MEDS: NIFEdipine E.R. 30 MG TABLET (FP) PO SCH (10:18)
[2018-10-06] MEDS: LISINOPRIL 20 MG TABLET (FP) PO SCH (10:18)
[2018-10-06] MEDS: PRENATAL VITAMINS W/ FOLIC ACID TABLET (FP) PO SCH (10:19)
[2018-10-06] MEDS: ASPIRIN 81 MG CHEWABLE TABLETS PO SCH (10:20)
[2018-10-06 11:02] LABS: ALBUMIN 3.4 g/dl (3.4-5.0); ALK PHOS 62 U/L (45-117); ANION GAP 5 MMOL/L (8-16); BILIRUBIN,TOTAL 0.5 mg/dL (0.2-1); BLOOD UREA NITROGEN 14 mg/dL (7-18); CALCIUM 8.9 mg/dL (8.5-10.1); CHLORIDE 104 mmol/L (98-107); CO2 30 mmol/L (21-32); GLUCOSE,RANDOM 174 mg/dL (74-106); POTASSIUM 4.5 mmol/L (3.5-5.1); SGOT/AST 13 U/L (15-37); SGPT/ALT 20 U/L (13-61); SODIUM 139 mmol/L (136-145); TOT PROT 6.7 g/dl (6.4-8.2)
[2018-10-06 11:06] LABS: HEMATOCRIT 32.6 % (35.4-49); MCH 28.3 pg (25.7-33.7); MCHC 33.9 g/dl (32.0-35.9); MEAN CELL VOLUME 83.7 fl (80-96); PLATELET COUNT 285 K/MM3 (134-434); RBC 3.89 M/mm3 (4.00-5.60); RDW 14.4 % (11.9-15.9); WHITE BLOOD COUNT 7.1 K/mm3 (4.0-10.0)
[2018-10-06] MEDS: INSULIN (NOVOLOG) ASPART 100 UNITS/ML 10ML VIAL SQ SCH ×2 (12:40→16:58)
[2018-10-06] MEDS: INSULIN SLIDING SCALE (NOVOLOG) 1 VIAL SQ SCH ×2 (16:58→22:23)
[2018-10-06] MEDS: ALBUTEROL SO4 8 GM HFA INHALER IH PRN (17:43)
[2018-10-06] MEDS ORDERED: traZODone HCL 50 MG TABLET (FP) PO ONE (22:00)
[2018-10-06] MEDS: ATORVASTATIN CA 20 MG TABLET (FP) PO SCH (22:22)
[2018-10-06] MEDS: THIAMINE HCL 100 MG TABLET (FP) PO SCH (22:22)
[2018-10-06] MEDS: FLUTICASONE PROP 0.05% 16 GM NASAL SPRAY NS SCH (23:35)
[2018-10-07] MEDS ORDERED: INSULIN (LEVEMIR) 100 UNITS/ML UNITS SQ ONE (06:54)
[2018-10-07] MEDS: metFORMIN HCL 500 MG TABLET (FP) PO SCH ×2 (07:41→17:01)
[2018-10-07] MEDS: INSULIN SLIDING SCALE (NOVOLOG) 1 VIAL SQ SCH ×4 (07:42→22:29)
[2018-10-07] MEDS: INSULIN (NOVOLOG) ASPART 100 UNITS/ML 10ML VIAL SQ SCH ×3 (07:42→17:01)
[2018-10-07] MEDS: TAMSULOSIN HCL 0.4 MG CAP PO SCH (09:15)
[2018-10-07] MEDS ORDERED: METHADONE HCL 5 MG TABLET (FOR DETOX USE ONLY) PO ONE (10:00)
[2018-10-07] MEDS: PRENATAL VITAMINS W/ FOLIC ACID TABLET (FP) PO SCH (10:15)
[2018-10-07] MEDS: NIFEdipine E.R. 30 MG TABLET (FP) PO SCH (10:15)
[2018-10-07] MEDS: ASPIRIN 81 MG CHEWABLE TABLETS PO SCH (10:15)
[2018-10-07] MEDS: LISINOPRIL 20 MG TABLET (FP) PO SCH (10:15)
[2018-10-07] MEDS: FLUTICASONE PROP 0.05% 16 GM NASAL SPRAY NS SCH ×2 (10:16→22:10)
--- NOTE | 2018-10-07 15:04 | PN ---
BHS COWS - Scale Resting Pulse: 1= [place] 81-100 Sweatin= Chills/Flushing Restless Observation: 0= Sits Still Pupil Size: 0= Normal to Room Light Bone or Joint Aches: 2= Severe Diffuse Aches Runny Nose/ Eye Tearin= None GI Upset > 30mins: 0= None Tremor Observation of Outstretched Hands: 0= None Yawning Observation: 1= 1-2x During Session Anxiety or Irritability: 2=Irritable/Anxious Goose Flesh Skin: 3=Piloerection COWS Score: 10 BHS Progress Note (SOAP) Subjective: Sweating, Chills, Interrupted sleep, Constipation. Objective: PATIENT A & O X 3, OBSERVED AMBULATING ON UNIT. IN NO ACUTE DISTRESS. 10/07/18 14:58 Vital Signs Temperature 97.1 F L 10/07/18 13:34 Pulse Rate 97 H 10/07/18 13:34 Respiratory Rate 20 10/07/18 13:34 Blood Pressure 182/93 H 10/07/18 13:34 O2 Sat by Pulse Oximetry (%) Laboratory Tests 10/05/18 10/05/18 10/06/18 21:13 22:45 05:04 WBC RBC Hgb Hct MCV MCH MCHC RDW Plt Count MPV Sodium Potassium Chloride Carbon Dioxide Anion Gap BUN Creatinine Creat Clearance w eGFR POC Glucometer 183 193 Random Glucose Calcium Total Bilirubin AST ALT Alkaline Phosphatase Total Protein Albumin Urine Color Yellow Urine Appearance Clear Urine pH 6.0 Ur Specific [place] 1.025 Urine Protein 3+ H D Urine Glucose (UA) 1+ H Urine Ketones Negative Urine Blood Negative Urine Nitrite Negative Urine Bilirubin Negative Urine Urobilinogen Negative Ur Leukocyte Esterase Negative Urine WBC (Auto) 1 Urine RBC (Auto) 24 Hyaline Casts 1 Urine Mucus Rare Urine Yeast Many RPR Titer 10/06/18 10/06/18 10/06/18 07:00 07:00 07:00 WBC 7.1 RBC 3.89 L Hgb 11.0 L Hct 32.6 L MCV 83.7 MCH 28.3 MCHC 33.9 RDW 14.4 Plt Count 285 MPV 8.0 Sodium 139 Potassium 4.5 Chloride 104 Carbon Dioxide 30 Anion Gap 5 L BUN 14 Creatinine 1.0 Creat Clearance w eGFR > 60 POC Glucometer Random Glucose 174 H Calcium 8.9 Total Bilirubin 0.5 AST 13 L ALT 20 Alkaline Phosphatase 62 Total Protein 6.7 Albumin 3.4 Urine Color Urine Appearance Urine pH Ur Specific [place] Urine Protein Urine Glucose (UA) Urine Ketones Urine Blood Urine Nitrite Urine Bilirubin Urine Urobilinogen Ur Leukocyte Esterase Urine WBC (Auto) Urine RBC (Auto) Hyaline Casts Urine Mucus Urine Yeast RPR Titer Nonreactive 10/06/18 10/06/18 10/06/18 12:34 16:28 20:59 WBC RBC Hgb Hct MCV MCH MCHC RDW Plt Count MPV Sodium Potassium Chloride Carbon Dioxide Anion Gap BUN Creatinine Creat Clearance w eGFR POC Glucometer 165 171 247 Random Glucose Calcium Total Bilirubin AST ALT Alkaline Phosphatase Total Protein Albumin Urine Color Urine Appearance Urine pH Ur Specific [place] Urine Protein Urine Glucose (UA) Urine Ketones Urine Blood Urine Nitrite Urine Bilirubin Urine Urobilinogen Ur Leukocyte Esterase Urine WBC (Auto) Urine RBC (Auto) Hyaline Casts Urine Mucus Urine Yeast RPR Titer 10/07/18 10/07/18 05:35 11:16 WBC RBC Hgb Hct MCV MCH MCHC RDW Plt Count MPV Sodium Potassium Chloride Carbon Dioxide Anion Gap BUN Creatinine Creat Clearance w eGFR POC Glucometer 143 92 Random Glucose Calcium Total Bilirubin AST ALT Alkaline Phosphatase Total Protein Albumin Urine Color Urine Appearance Urine pH Ur Specific [place] Urine Protein Urine Glucose (UA) Urine Ketones Urine Blood Urine Nitrite Urine Bilirubin Urine Urobilinogen Ur Leukocyte Esterase Urine WBC (Auto) Urine RBC (Auto) Hyaline Casts Urine Mucus Urine Yeast RPR Titer LABS NOTED. Assessment: 10/07/18 15:00 WITHDRAWAL SYMPTOMS. HYPERTENSION. NEUROPATHY. 10/07/18 15:04 Plan: CONTINUE DETOX. CONTINUE TO MONITOR BP. Patient reports that his Bilateral Lower Extremity Neuropathy (Secondary to DM) has been starting to cause him more discomfort today as opposed to when he was initially admitted to Detox Unit. PATIENT REPORTS HISTORY OF TAKING LYRICA, 150 MG PO TID) FOR NEUROPATHY. PATIENT HAS MEDICATION BOTTLE FOR LYRICA THAT HE BROUGHT WITH HIM AT TIME OF ADMISSION. BOTTLE WITH DOSAGE AND SCHEDULING DISPLAYED TO Maliha KHOURY RN. HISTORY OF MEDICATION PRESCRIPTION ALSO CONFIRMED BY EXTERNAL MEDICATION REVIEW. WILL ORDER LYRICA FOR PATIENT FOR NEUROPATHY.
[2018-10-07] MEDS: MELATONIN 5 MG TABLETS PO PRN (22:11)
[2018-10-07] MEDS: THIAMINE HCL 100 MG TABLET (FP) PO SCH (22:11)
[2018-10-07] MEDS: PREGABALIN 75 MG CAPSULE PO SCH (22:11)
[2018-10-07] MEDS: ATORVASTATIN CA 20 MG TABLET (FP) PO SCH (22:11)
[2018-10-07] MEDS: INSULIN (LEVEMIR) 100 UNITS/ML UNITS SQ SCH (22:14)
[2018-10-07] MEDS: ALBUTEROL SO4 8 GM HFA INHALER IH PRN (22:15)
[2018-10-08] MEDS: PREGABALIN 75 MG CAPSULE PO SCH ×3 (05:54→22:12)
[2018-10-08] MEDS: metFORMIN HCL 500 MG TABLET (FP) PO SCH ×2 (06:35→17:06)
[2018-10-08] MEDS: INSULIN SLIDING SCALE (NOVOLOG) 1 VIAL SQ SCH ×4 (07:25→22:57)
[2018-10-08] MEDS: INSULIN (NOVOLOG) ASPART 100 UNITS/ML 10ML VIAL SQ SCH ×3 (08:18→16:53)
[2018-10-08] MEDS ORDERED: METHADONE HCL 5 MG TABLET (FOR DETOX USE ONLY) PO ONE (10:00)
[2018-10-08] MEDS: LISINOPRIL 20 MG TABLET (FP) PO SCH ×2 (10:16→22:09)
[2018-10-08] MEDS: TAMSULOSIN HCL 0.4 MG CAP PO SCH (10:16)
[2018-10-08] MEDS: FLUTICASONE PROP 0.05% 16 GM NASAL SPRAY NS SCH ×2 (10:16→22:09)
[2018-10-08] MEDS: ASPIRIN 81 MG CHEWABLE TABLETS PO SCH (10:16)
[2018-10-08] MEDS: PRENATAL VITAMINS W/ FOLIC ACID TABLET (FP) PO SCH (10:16)
[2018-10-08] MEDS: NIFEdipine E.R. 30 MG TABLET (FP) PO SCH (10:16)
[2018-10-08] MEDS: ALBUTEROL SO4 8 GM HFA INHALER IH PRN (13:44)
--- NOTE | 2018-10-08 14:21 | PN ---
BHS Progress Note (SOAP) Subjective: Interrupted Sleep, Constipation, H/A, Body Aches. Objective: PATIENT A & O X 3, OBSERVED AMBULATING ON UNIT. IN NO ACUTE DISTRESS. PATIENT DENIES CHEST PAIN. 10/08/18 14:17 Vital Signs Temperature 99.0 F 10/08/18 09:27 Pulse Rate 81 10/08/18 09:27 Respiratory Rate 20 10/08/18 09:27 Blood Pressure 158/87 10/08/18 09:27 O2 Sat by Pulse Oximetry (%) Laboratory Tests 10/05/18 10/05/18 10/06/18 21:13 22:45 05:04 WBC RBC Hgb Hct MCV MCH MCHC RDW Plt Count MPV Sodium Potassium Chloride Carbon Dioxide Anion Gap BUN Creatinine Creat Clearance w eGFR POC Glucometer 183 193 Random Glucose Calcium Total Bilirubin AST ALT Alkaline Phosphatase Total Protein Albumin Urine Color Yellow Urine Appearance Clear Urine pH 6.0 Ur Specific [place] 1.025 Urine Protein 3+ H D Urine Glucose (UA) 1+ H Urine Ketones Negative Urine Blood Negative Urine Nitrite Negative Urine Bilirubin Negative Urine Urobilinogen Negative Ur Leukocyte Esterase Negative Urine WBC (Auto) 1 Urine RBC (Auto) 24 Hyaline Casts 1 Urine Mucus Rare Urine Yeast Many RPR Titer 10/06/18 10/06/18 10/06/18 07:00 07:00 07:00 WBC 7.1 RBC 3.89 L Hgb 11.0 L Hct 32.6 L MCV 83.7 MCH 28.3 MCHC 33.9 RDW 14.4 Plt Count 285 MPV 8.0 Sodium 139 Potassium 4.5 Chloride 104 Carbon Dioxide 30 Anion Gap 5 L BUN 14 Creatinine 1.0 Creat Clearance w eGFR > 60 POC Glucometer Random Glucose 174 H Calcium 8.9 Total Bilirubin 0.5 AST 13 L ALT 20 Alkaline Phosphatase 62 Total Protein 6.7 Albumin 3.4 Urine Color Urine Appearance Urine pH Ur Specific [place] Urine Protein Urine Glucose (UA) Urine Ketones Urine Blood Urine Nitrite Urine Bilirubin Urine Urobilinogen Ur Leukocyte Esterase Urine WBC (Auto) Urine RBC (Auto) Hyaline Casts Urine Mucus Urine Yeast RPR Titer Nonreactive 10/06/18 10/06/18 10/06/18 12:34 16:28 20:59 WBC RBC Hgb Hct MCV MCH MCHC RDW Plt Count MPV Sodium Potassium Chloride Carbon Dioxide Anion Gap BUN Creatinine Creat Clearance w eGFR POC Glucometer 165 171 247 Random Glucose Calcium Total Bilirubin AST ALT Alkaline Phosphatase Total Protein Albumin Urine Color Urine Appearance Urine pH Ur Specific [place] Urine Protein Urine Glucose (UA) Urine Ketones Urine Blood Urine Nitrite Urine Bilirubin Urine Urobilinogen Ur Leukocyte Esterase Urine WBC (Auto) Urine RBC (Auto) Hyaline Casts Urine Mucus Urine Yeast RPR Titer 10/07/18 10/07/18 10/07/18 05:35 11:16 16:33 WBC RBC Hgb Hct MCV MCH MCHC RDW Plt Count MPV Sodium Potassium Chloride Carbon Dioxide Anion Gap BUN Creatinine Creat Clearance w eGFR POC Glucometer 143 92 183 Random Glucose Calcium Total Bilirubin AST ALT Alkaline Phosphatase Total Protein Albumin Urine Color Urine Appearance Urine pH Ur Specific [place] Urine Protein Urine Glucose (UA) Urine Ketones Urine Blood Urine Nitrite Urine Bilirubin Urine Urobilinogen Ur Leukocyte Esterase Urine WBC (Auto) Urine RBC (Auto) Hyaline Casts Urine Mucus Urine Yeast RPR Titer 10/07/18 10/08/18 10/08/18 20:24 05:53 11:40 WBC RBC Hgb Hct MCV MCH MCHC RDW Plt Count MPV Sodium Potassium Chloride Carbon Dioxide Anion Gap BUN Creatinine Creat Clearance w eGFR POC Glucometer 104 118 175 Random Glucose Calcium Total Bilirubin AST ALT Alkaline Phosphatase Total Protein Albumin Urine Color Urine Appearance Urine pH Ur Specific [place] Urine Protein Urine Glucose (UA) Urine Ketones Urine Blood Urine Nitrite Urine Bilirubin Urine Urobilinogen Ur Leukocyte Esterase Urine WBC (Auto) Urine RBC (Auto) Hyaline Casts Urine Mucus Urine Yeast RPR Titer LABS NOTED. 10/08/18 14:19 Assessment: 10/08/18 14:19 WITHDRAWAL SYMPTOMS. HYPERTENSION. ANEMIA. 10/08/18 14:20 Plan: CONTINUE DETOX. CONTINUE TO MONITOR BP. INCREASE DAILY PO FLUID INTAKE.
[2018-10-08] MEDS: ATORVASTATIN CA 20 MG TABLET (FP) PO SCH (22:09)
[2018-10-08] MEDS: INSULIN (LEVEMIR) 100 UNITS/ML UNITS SQ SCH (22:10)
[2018-10-08] MEDS: THIAMINE HCL 100 MG TABLET (FP) PO SCH (22:10)
[2018-10-08] MEDS: MELATONIN 5 MG TABLETS PO PRN (22:13)
[2018-10-09] MEDS: ALBUTEROL SO4 8 GM HFA INHALER IH PRN ×2 (00:23→22:51)
[2018-10-09] MEDS: PREGABALIN 75 MG CAPSULE PO SCH ×3 (05:12→22:52)
[2018-10-09] MEDS: INSULIN SLIDING SCALE (NOVOLOG) 1 VIAL SQ SCH ×4 (06:11→22:54)
[2018-10-09] MEDS: metFORMIN HCL 500 MG TABLET (FP) PO SCH ×2 (06:11→16:44)
[2018-10-09] MEDS: INSULIN (NOVOLOG) ASPART 100 UNITS/ML 10ML VIAL SQ SCH ×3 (06:13→16:44)
[2018-10-09] MEDS ORDERED: METHADONE HCL 10 MG TABLET (FOR DETOX USE ONLY) PO ONE (10:00)
[2018-10-09] MEDS: NIFEdipine E.R. 30 MG TABLET (FP) PO SCH (10:21)
[2018-10-09] MEDS: TAMSULOSIN HCL 0.4 MG CAP PO SCH (10:21)
[2018-10-09] MEDS: ASPIRIN 81 MG CHEWABLE TABLETS PO SCH (10:21)
[2018-10-09] MEDS: LISINOPRIL 20 MG TABLET (FP) PO SCH ×2 (10:21→22:50)
[2018-10-09] MEDS: PRENATAL VITAMINS W/ FOLIC ACID TABLET (FP) PO SCH (10:21)
[2018-10-09] MEDS: FLUTICASONE PROP 0.05% 16 GM NASAL SPRAY NS SCH ×2 (10:22→22:50)
--- NOTE | 2018-10-09 15:05 | PN ---
BHS COWS - Scale Resting Pulse: 0= [place] 80 or Below Sweatin= Chills/Flushing Restless Observation: 0= Sits Still Pupil Size: 0= Normal to Room Light Bone or Joint Aches: 1= Mild Discomfort Runny Nose/ Eye Tearin= Nasal Congestion GI Upset > 30mins: 0= None Tremor Observation of Outstretched Hands: 1= Tremor [place], Not Seen Yawning Observation: 0= None Anxiety or Irritability: 0= None Goose Flesh Skin: 0=Smooth Skin COWS Score: 4 BHS Progress Note (SOAP) Subjective: feeliing better mild tremor less body aches patient received 30 days medications filled on 10/03/18 patient does not require medication renew encourage to pepper picker narcan kit Objective: 10/09/18 15:09 Vital Signs Temperature 97.9 F 10/09/18 13:34 Pulse Rate 102 H 10/09/18 13:34 Respiratory Rate 18 10/09/18 13:34 Blood Pressure 157/91 10/09/18 13:34 O2 Sat by Pulse Oximetry (%) Laboratory Last Values WBC 7.1 K/mm3 (4.0-10.0) 10/06/18 07:00 RBC 3.89 M/mm3 (4.00-5.60) L 10/06/18 07:00 Hgb 11.0 GM/dL (11.7-16.9) L 10/06/18 07:00 Hct 32.6 % (35.4-49) L 10/06/18 07:00 MCV 83.7 fl (80-96) 10/06/18 07:00 MCH 28.3 pg (25.7-33.7) 10/06/18 07:00 MCHC 33.9 g/dl (32.0-35.9) 10/06/18 07:00 RDW 14.4 % (11.9-15.9) 10/06/18 07:00 Plt Count 285 K/MM3 (134-434) 10/06/18 07:00 MPV 8.0 fl (7.5-11.1) 10/06/18 07:00 Sodium 139 mmol/L (136-145) 10/06/18 07:00 Potassium 4.5 mmol/L (3.5-5.1) 10/06/18 07:00 Chloride 104 mmol/L (98-107) 10/06/18 07:00 Carbon Dioxide 30 mmol/L (21-32) 10/06/18 07:00 Anion Gap 5 MMOL/L (8-16) L 10/06/18 07:00 BUN 14 mg/dL (7-18) 10/06/18 07:00 Creatinine 1.0 mg/dL (0.55-1.3) 10/06/18 07:00 Creat Clearance w eGFR > 60 (>60) 10/06/18 07:00 POC Glucometer 252 UNITS (80-120) 10/09/18 11:49 Random Glucose 174 mg/dL (74-106) H 10/06/18 07:00 Calcium 8.9 mg/dL (8.5-10.1) 10/06/18 07:00 Total Bilirubin 0.5 mg/dL (0.2-1) 10/06/18 07:00 AST 13 U/L (15-37) L 10/06/18 07:00 ALT 20 U/L (13-61) 10/06/18 07:00 Alkaline Phosphatase 62 U/L (45-117) 10/06/18 07:00 Total Protein 6.7 g/dl (6.4-8.2) 10/06/18 07:00 Albumin 3.4 g/dl (3.4-5.0) 10/06/18 07:00 Urine Color Yellow 10/05/18 22:45 Urine Appearance Clear 10/05/18 22:45 Urine pH 6.0 (5.0-8.0) 10/05/18 22:45 Ur Specific [place] 1.025 (1.010-1.035) 10/05/18 22:45 Urine Protein 3+ (NEGATIVE) H D 10/05/18 22:45 Urine Glucose (UA) 1+ (NEGATIVE) H 10/05/18 22:45 Urine Ketones Negative (NEGATIVE) 10/05/18 22:45 Urine Blood Negative (NEGATIVE) 10/05/18 22:45 Urine Nitrite Negative (NEGATIVE) 10/05/18 22:45 Urine Bilirubin Negative (<2.0 mg/dL) 10/05/18 22:45 Urine Urobilinogen Negative mg/dL (0.2-1.0) 10/05/18 22:45 Ur Leukocyte Esterase Negative (NEGATIVE) 10/05/18 22:45 Urine WBC (Auto) 1 /hpf (3-5) 10/05/18 22:45 Urine RBC (Auto) 24 /hpf (0-3) 10/05/18 22:45 Hyaline Casts 1 /lpf 10/05/18 22:45 Urine Mucus Rare 10/05/18 22:45 Urine Yeast Many 10/05/18 22:45 RPR Titer Nonreactive (NONREACTIVE) 10/06/18 07:00 lab noted Assessment: 10/09/18 15:09 withdrawal sx Plan: continue detox
[2018-10-09] MEDS: ATORVASTATIN CA 20 MG TABLET (FP) PO SCH (22:50)
[2018-10-09] MEDS: MELATONIN 5 MG TABLETS PO PRN (22:52)
[2018-10-09] MEDS: THIAMINE HCL 100 MG TABLET (FP) PO SCH (22:52)
[2018-10-09] MEDS: INSULIN (LEVEMIR) 100 UNITS/ML UNITS SQ SCH (22:54)
[2018-10-10] MEDS: PREGABALIN 75 MG CAPSULE PO SCH (05:13)
[2018-10-10] MEDS ORDERED: METHADONE HCL 5 MG TABLET (FOR DETOX USE ONLY) PO ONE (06:00)
[2018-10-10] MEDS ORDERED: INSULIN SLIDING SCALE (NOVOLOG) 1 VIAL SQ ONE (06:38)
[2018-10-10] MEDS: INSULIN (NOVOLOG) ASPART 100 UNITS/ML 10ML VIAL SQ SCH (07:01)
[2018-10-10] MEDS: metFORMIN HCL 500 MG TABLET (FP) PO SCH (07:01)
[2018-10-10] MEDS: INSULIN SLIDING SCALE (NOVOLOG) 1 VIAL SQ SCH (07:01)
[2018-10-10] MEDS: TAMSULOSIN HCL 0.4 MG CAP PO SCH (08:31)
[2018-10-10 09:14] VITALS: TEMP 97.6
[2018-10-10] MEDS: FLUTICASONE PROP 0.05% 16 GM NASAL SPRAY NS SCH (09:30)
[2018-10-10] MEDS: ALBUTEROL SO4 8 GM HFA INHALER IH PRN (09:30)
[2018-10-10] MEDS: ASPIRIN 81 MG CHEWABLE TABLETS PO SCH (09:31)
[2018-10-10] MEDS: LISINOPRIL 20 MG TABLET (FP) PO SCH (09:31)
[2018-10-10] MEDS: PRENATAL VITAMINS W/ FOLIC ACID TABLET (FP) PO SCH (09:31)
[2018-10-10] MEDS: NIFEdipine E.R. 30 MG TABLET (FP) PO SCH (09:31)
[2018-10-10 11:10] VITALS: BP 138/84; PULSE 84
--- NOTE | 2018-10-10 11:47 | DS ---
[facility] Detox Discharge Summary Admission Date: 10/05/18 Discharge Date: 10/10/18 - History Present History: Opioid Dependence Additional Comments: 58 years old male admitted on 10/05/18 for opiate withdrawal stabilization completed opiate detox regimen [facility] meth[facility] assisted treatment program / [facility] - Physical Exam Results Vital Signs: Vital Signs Temperature 97.6 F 10/10/18 09:13 Pulse Rate 84 10/10/18 10:12 Respiratory Rate 18 10/10/18 10:12 Blood Pressure 138/84 10/10/18 10:12 O2 Sat by Pulse Oximetry (%) Pertinent Admission Physical Exam Findings: opiate withdrawal sx Laboratory Last Values WBC 7.1 K/mm3 (4.0-10.0) 10/06/18 07:00 RBC 3.89 M/mm3 (4.00-5.60) L 10/06/18 07:00 Hgb 11.0 GM/dL (11.7-16.9) L 10/06/18 07:00 Hct 32.6 % (35.4-49) L 10/06/18 07:00 MCV 83.7 fl (80-96) 10/06/18 07:00 MCH 28.3 pg (25.7-33.7) 10/06/18 07:00 MCHC 33.9 g/dl (32.0-35.9) 10/06/18 07:00 RDW 14.4 % (11.9-15.9) 10/06/18 07:00 Plt Count 285 K/MM3 (134-434) 10/06/18 07:00 MPV 8.0 fl (7.5-11.1) 10/06/18 07:00 Sodium 139 mmol/L (136-145) 10/06/18 07:00 Potassium 4.5 mmol/L (3.5-5.1) 10/06/18 07:00 Chloride 104 mmol/L (98-107) 10/06/18 07:00 Carbon Dioxide 30 mmol/L (21-32) 10/06/18 07:00 Anion Gap 5 MMOL/L (8-16) L 10/06/18 07:00 BUN 14 mg/dL (7-18) 10/06/18 07:00 Creatinine 1.0 mg/dL (0.55-1.3) 10/06/18 07:00 Creat Clearance w eGFR > 60 (>60) 10/06/18 07:00 POC Glucometer 233 UNITS (80-120) 10/10/18 05:12 Random Glucose 174 mg/dL (74-106) H 10/06/18 07:00 Calcium 8.9 mg/dL (8.5-10.1) 10/06/18 07:00 Total Bilirubin 0.5 mg/dL (0.2-1) 10/06/18 07:00 AST 13 U/L (15-37) L 10/06/18 07:00 ALT 20 U/L (13-61) 10/06/18 07:00 Alkaline Phosphatase 62 U/L (45-117) 10/06/18 07:00 Total Protein 6.7 g/dl (6.4-8.2) 10/06/18 07:00 Albumin 3.4 g/dl (3.4-5.0) 10/06/18 07:00 Urine Color Yellow 10/05/18 22:45 Urine Appearance Clear 10/05/18 22:45 Urine pH 6.0 (5.0-8.0) 10/05/18 22:45 Ur Specific [place] 1.025 (1.010-1.035) 10/05/18 22:45 Urine Protein 3+ (NEGATIVE) H D 10/05/18 22:45 Urine Glucose (UA) 1+ (NEGATIVE) H 10/05/18 22:45 Urine Ketones Negative (NEGATIVE) 10/05/18 22:45 Urine Blood Negative (NEGATIVE) 10/05/18 22:45 Urine Nitrite Negative (NEGATIVE) 10/05/18 22:45 Urine Bilirubin Negative (<2.0 mg/dL) 10/05/18 22:45 Urine Urobilinogen Negative mg/dL (0.2-1.0) 10/05/18 22:45 Ur Leukocyte Esterase Negative (NEGATIVE) 10/05/18 22:45 Urine WBC (Auto) 1 /hpf (3-5) 10/05/18 22:45 Urine RBC (Auto) 24 /hpf (0-3) 10/05/18 22:45 Hyaline Casts 1 /lpf 10/05/18 22:45 Urine Mucus Rare 10/05/18 22:45 Urine Yeast Many 10/05/18 22:45 RPR Titer Nonreactive (NONREACTIVE) 10/06/18 07:00 lab noted patient agrees to bring medication list and lab report to methadone program intake 10/11/18 patient was anxious that he is leaving the detox safe and supportive environment 10 am antihypertensant givem around 0930 repeat bp 140/88 patient denies headaches denies chest pain no shortness of breath - Treatment Hospital Course: Detox Protocol Followed, Detoxed Safely, Responded well, Discharged Condition Good, Rehab Referral Accepted Patient has Accepted a Rehab Referral to: methadone assisted treatment program - Medication Discharge Medications: Ambulatory Orders Aspirin [ASA -] 81 mg PO DAILY 06/15/13 Atorvastatin Ca [Lipitor] 20 mg PO HS 06/15/13 Albuterol Sulfate Inhaler - [Ventolin HFA Inhaler -] 2 inh PO Q4H PRN #1 inh Tamsulosin HCl [Flomax -] 0.4 mg PO DAILY 01/16/15 Lisinopril [Prinivil] 20 mg PO DAILY 05/03/15 Insulin (Novolog) [Novolog Flexpen -] 20 units SQ BIDAC 09/21/16 Insulin Glargine,Hum.rec.anlog [Lantus Solostar PEN -] 30 units SQ BIDAC Flunisolide 25 ml NS HS 10/05/18 Metformin HCl [Glucophage] 1,000 mg PO BID 10/05/18 Nifedipine [Adalat cc] 30 mg PO DAILY 10/05/18 Pregabalin [Lyrica -] 150 mg PO TID 10/05/18 Naloxone HCl [Narcan] 4 mg NS ASDIR PRN 10/09/18 - Diagnosis (1) Opioid dependence with withdrawal Status: Acute (2) Substance induced mood disorder Status: Suspected (3) Asthma Status: Chronic Qualifiers: Asthma severity: mild Asthma persistence: intermittent Asthma complication type: with status asthmaticus Qualified Code(s): J45.22 - Mild intermittent asthma with status asthmaticus (4) BPH (benign prostatic hyperplasia) Status: Chronic (5) Essential hypertension Status: Chronic (6) Type 2 diabetes mellitus Status: Chronic Qualifiers: Diabetes mellitus manager terminal insulin use: with manager terminal use Diabetes mellitus complication status: with neurologic complications - AMA Did Patient Leave Against Medical Advice: No
== END 2018-10-10 10:17 | disposition home or self-care (01) | DRG 897 ==
LOC: YASAS 15:33 → Y3N 19:38
PROVIDERS: ADMIT Surgery; ATTEND Surgery
PROC: HZ2ZZZZ Detoxification Services for Substance Abuse Treatment (ICD-10-PCS; principal; 2018-10-05)
DX: F11.23 Opioid dependence with withdrawal (principal); F19.24 Other psychoactive substance dependence with psychoactive substance-induced mood disorder; I10 Essential (primary) hypertension; J45.20 Mild intermittent asthma, uncomplicated; N40.0 Benign prostatic hyperplasia without lower urinary tract symptoms; E11.9 Type 2 diabetes mellitus without complications; D64.9 Anemia, unspecified; G62.1 Alcoholic polyneuropathy; E78.00 Pure hypercholesterolemia, unspecified; E66.8 Other obesity; Z68.38 Body mass index [BMI] 38.0-38.9, adult; Z79.4 Long term (current) use of insulin; Z96.653 Presence of artificial knee joint, bilateral
CPT/HCPCS: 36415; 80053; 81003; 81015; 82962; 85027; 86593; J0735